=== PATIENT | female | born 1960 | race Caucasian/White ===

== ENCOUNTER 2019-05-19 07:26 | Outpatient (CLI) | payer BC, SELFPAY ==
--- NOTE | 2019-05-19 | MM_ITS ---
BILATERAL SCREENING DIGITAL MAMMOGRAM WITH CAD HISTORY: SCREENING COMPARISON: 05/25/2017 and 01/09/2015 Bilateral CC and MLO views submitted. Computer aided detection analyzed. Breast composition: There are scattered areas of fibroglandular density. No suspicious masses, microcalcifications or architectural distortion. Stable calcifications and nodules within each breast. IMPRESSION: BI-RADS: 2-Benign FOLLOW UP: 1 Year Follow- MTDD
== END 2019-05-19 07:27 | disposition home or self-care (01) ==
PROVIDERS: Family Provider Family Medicine; PCP Family Medicine; Visit Provider Family Medicine
DX: Z12.31 Encounter for screening mammogram for malignant neoplasm of breast (principal)
CPT/HCPCS: 77067

== ENCOUNTER → 2019-06-01 07:51 | Outpatient (BNVA) | payer BC, SELFPAY | PROVIDERS: Family Provider Family Medicine; PCP Family Medicine; Visit Provider Nurse Practitioner | DX: F33.2 Major depressive disorder, recurrent severe without psychotic features (principal) | CPT/HCPCS: 99213 ==

== ENCOUNTER → 2019-06-29 08:11 | Outpatient (BNVA) | payer BC, SELFPAY | PROVIDERS: Family Provider Family Medicine; PCP Family Medicine; Visit Provider Family Medicine | DX: Z01.89 Encounter for other specified special examinations (principal) ==

== ENCOUNTER 2019-07-05 12:11 | Outpatient (CLI) | payer BC, SELFPAY ==
--- NOTE | 2019-07-05 12:24 | XR_ITS ---
WS: [id number] XR knee RT 3V* [id number] REASON FOR EXAM: right knee pain FINDINGS: Degenerated loss of the meniscal space along the medial meniscus. There is spurring off the medial condyle of the femur and the medial tibial plateau. The patella shows degenerates spurring. And there is degenerate changes off the patella femoral artic ulation. The patella tibial space shows spurring off the upper tibial tubercle but the space is normal. XR/XR knee RT 3V* [id number] IMPRESSION: Osteoarthritic changes of the knee. Degenerated medial meniscal disease.
== END 2019-07-05 12:12 | disposition home or self-care (01) ==
LOC: RAD 12:19
PROVIDERS: Family Provider Family Medicine; PCP Family Medicine; Visit Provider Family Medicine
DX: M23.303 Other meniscus derangements, unspecified medial meniscus, right knee (principal)
CPT/HCPCS: 73562

== ENCOUNTER → 2019-08-29 07:41 | Outpatient (BNVA) | payer BC, SELFPAY | PROVIDERS: Family Provider Family Medicine; PCP Family Medicine; Visit Provider Nurse Practitioner | DX: F33.2 Major depressive disorder, recurrent severe without psychotic features (principal) | CPT/HCPCS: 99213 ==

== ENCOUNTER → 2019-11-21 07:30 | Outpatient (BNVA) | payer BC, SELFPAY | PROVIDERS: Family Provider Family Medicine; PCP Family Medicine; Visit Provider Nurse Practitioner | DX: F33.2 Major depressive disorder, recurrent severe without psychotic features (principal) | CPT/HCPCS: 99214 ==

== ENCOUNTER → 2020-01-03 08:48 | Outpatient (BNVA) | payer BC, SELFPAY | PROVIDERS: Family Provider Family Medicine; PCP Family Medicine; Visit Provider Family Medicine | DX: I10 Essential (primary) hypertension (principal); E11.9 Type 2 diabetes mellitus without complications; E78.5 Hyperlipidemia, unspecified | CPT/HCPCS: 80053; 80061; 82043; 83036; 85025 ==

== ENCOUNTER → 2020-02-20 07:51 | Outpatient (BNVA) | payer BC, SELFPAY | PROVIDERS: Family Provider Family Medicine; PCP Family Medicine; Visit Provider Nurse Practitioner | DX: F33.2 Major depressive disorder, recurrent severe without psychotic features (principal); F41.1 Generalized anxiety disorder | CPT/HCPCS: 99214 ==

== ENCOUNTER → 2020-03-05 09:25 | Outpatient (BNVA) | payer BC, SELFPAY | PROVIDERS: Family Provider Family Medicine; PCP Family Medicine; Visit Provider Family Medicine | DX: Z79.891 Long term (current) use of opiate analgesic (principal) | CPT/HCPCS: 80307 ==

== ENCOUNTER → 2020-03-30 14:15 | Outpatient (BNVA) | payer BC, SELFPAY | PROVIDERS: Family Provider Family Medicine; PCP Family Medicine; Visit Provider Surgery | DX: Z11.59 Encounter for screening for other viral diseases (principal); R19.4 Change in bowel habit | CPT/HCPCS: 87635 ==

== ENCOUNTER 2020-04-04 07:52 | Day surgery (SDC) | payer BC, SELFPAY ==
[2020-04-02 13:58] VITALS: BMI 39.3
[2020-04-04 08:07] VITALS: BP 135/84; PULSE 78; RESP 18; TEMP 36.3; O2SAT 96
[2020-04-04] MEDS: sodium chloride 0.9% 1,000 ML 30 ML IV (08:19)
[2020-04-04 08:23] LABS: Glucose Point of Care 132 mg/dL (70-110)
--- NOTE | 2020-04-04 08:31 | ANES.PREANE2 ---
Pre-Anesthetic Assessment Pre-Anesthetic Assessment: Height/Weight: Height 1.6 m Weight 100.698 kg Temp Pulse Resp BP Pulse Ox 97.3 F L 78 18 135/84 96 04/04/20 08:07 04/04/20 08:07 04/04/20 08:07 04/04/20 08:07 04/04/20 08:07 Preop Diagnosis: Change in bowel habits Proposed Procedure: Operation Date: 04/04/20 08:45 Proposed Procedures p Colonoscopy 82823 R19.4(Not Applicable) - Steven Urena MD Familial anesthetic complications: None Was Beta Lee taken within 24 hours: N/A Last intake: Intake Last Liquid Date 04/03/20 Last Liquid Time 22:50 Last Solid Date 04/02/20 Last Solid Time 18:30 Social: Social History: Tobacco and No alcohol Exam: Pre-Anes Outpt Exam: alert, oriented x 3, clear to auscultation bilaterally and regular rate & rhythm Airway: Cervical ROM: WNL MP: 3 Dentition: False CV/HEM: CV/HEM: HTN GI: GI: GERD Metabolic: Metabolic: DM and Morbid obesity Anesthetic Plan: ASA status: 2 Anesthesia: MAC Risk of > 500 ml blood loss (7ml/kg in children): No Meds/Allergies Current Medications: Current Medications Generic Name Dose Route Start Last Admin Trade Name Freq PRN Reason Stop Dose Admin Sodium Chloride 1,000 mls @ 30 ml s/hr 04/04/20 08:15 04/04/20 08:19 Sodium Chloride 0.9% IV 04/05/20 08:14 30 mls/hr .Q24H GUIDO Administration PFSH Anesthesia PFSH: Medical History Benign essential HTN Controlled diabetes mellitus without complication Dyslipidemia GERD (gastroesophageal reflux disease) Lumbar back pain with radiculopathy affecting left lower extremity Major depressive disorder, recurrent severe without psychotic features Surgical History H/O section H/O tubal ligation History of appendectomy History of back surgery Family History Other Cancer Diabetes Hypertension Stroke Social History Smoking and tobacco status: current every day smoker cigarettes Packs smoked per day: 0.5 Years cigarettes smoked: 40 Smoking risk assessment/counseling performed?: Yes Tobacco counseling given: counseling >3 minutes Alcohol intake: current Alcohol intake frequency: holidays/special occasions only Data Anesthesia Other Labs: Laboratory Results - last 48 hr 04/04/20 08:17 POC Glucose 132 Cardiac Studies: No Data to Display
--- NOTE | 2020-04-04 09:26 | W.PM.OPSUD ---
Surgery/Procedure H&P Update DATE OF PROCEDURE: April 04, 2020 DATE H&P PERFORMED: 03/12/20 H&P UPDATE INFORMATION: I have reviewed H&P completed within last 30 days, I have examined patient prior to procedure and No changes to prior documentation PREOP DIAGNOSIS: Change in bowel habits PRIMARY INDICATION FOR PROCEDURE: The same PLANNED PROCEDURE: Operation Date: 04/04/20 08:45 Proposed Procedures p Colonoscopy 88511 R19.4(Not Applicable) - Steven Urena MD
[2020-04-04 10:15] VITALS: BP 111/63; PULSE 66; RESP 18; TEMP 37.3; O2SAT 98
[2020-04-04 10:20] VITALS: BP 124/67; PULSE 72; RESP 16; O2SAT 99
[2020-04-04 10:31] VITALS: BP 122/93; PULSE 68; RESP 18; O2SAT 99
--- NOTE | 2020-04-04 21:10 | ANE.PACU2 ---
Inpatient post-anesthesia follow up: Airway intact: Yes Vital signs: Temperature 99.2 F Pulse Rate 68 Respiratory Rate 18 Blood Pressure 122/93 Pulse Oximetry 99 Oxygen Delivery Me thod Room Air Oxygen Flow Rate 3 Fraction of Inspir ed Oxygen Hydration adequate: Yes Nausea and vomiting: No Pain level: 1 Mental status: Baseline
== END 2020-04-04 10:46 | disposition home or self-care (01) ==
PROVIDERS: PCP Family Medicine; Visit Provider Surgery
PROC: 0DJD8ZZ Inspection of Lower Intestinal Tract, Via Natural or Artificial Opening Endoscopic (ICD-10-PCS; CPT 45378; principal; 2020-04-04 08:45)
DX: R19.4 Change in bowel habit (principal); R19.7 Diarrhea, unspecified; E11.9 Type 2 diabetes mellitus without complications; I10 Essential (primary) hypertension; E66.01 Morbid (severe) obesity due to excess calories; Z68.39 Body mass index [BMI] 39.0-39.9, adult; K21.9 Gastro-esophageal reflux disease without esophagitis; F33.2 Major depressive disorder, recurrent severe without psychotic features; F17.210 Nicotine dependence, cigarettes, uncomplicated
CPT/HCPCS: 12345; 36416; 45378; 82962; J2704; J7030

== ENCOUNTER → 2020-05-07 08:32 | Outpatient (BNVA) | payer BC, SELFPAY | PROVIDERS: PCP Family Medicine; Visit Provider Family Medicine | DX: E11.9 Type 2 diabetes mellitus without complications (principal); I10 Essential (primary) hypertension; M54.16 Radiculopathy, lumbar region; L03.211 Cellulitis of face; F17.219 Nicotine dependence, cigarettes, with unspecified nicotine-induced disorders | CPT/HCPCS: 80053; 83036 ==

== ENCOUNTER → 2020-05-22 07:44 | Outpatient (BNVA) | payer BC, SELFPAY | PROVIDERS: PCP Family Medicine; Visit Provider Nurse Practitioner | DX: F33.2 Major depressive disorder, recurrent severe without psychotic features (principal) | CPT/HCPCS: 99213 ==

== ENCOUNTER → 2020-05-26 16:12 | Outpatient (BNVA) | payer BC, SELFPAY | PROVIDERS: PCP Family Medicine; Visit Provider Nurse Practitioner Family | DX: Z20.828 Contact with and (suspected) exposure to other viral communicable diseases (principal) | CPT/HCPCS: 87635 ==

== ENCOUNTER → 2020-06-05 08:35 | Outpatient (BNVA) | payer BC, SELFPAY | PROVIDERS: PCP Family Medicine; Visit Provider Family Medicine | DX: I10 Essential (primary) hypertension (principal) | CPT/HCPCS: 80048 ==

== ENCOUNTER → 2020-07-11 15:27 | Outpatient (BNVA) | payer BC, SELFPAY | PROVIDERS: PCP Family Medicine; Visit Provider Specialist | DX: G56.01 Carpal tunnel syndrome, right upper limb (principal); R20.0 Anesthesia of skin; R20.2 Paresthesia of skin; F17.210 Nicotine dependence, cigarettes, uncomplicated | CPT/HCPCS: 95908 ==

== ENCOUNTER 2020-08-02 14:13 | Outpatient (CLI) | payer BC, SELFPAY ==
--- NOTE | 2020-08-02 17:30 | MR_ITS ---
WS: [id number] MRI LUMBAR SPINE NONCONTRAST TECHNIQUE: Sagittal T1, T2 and STIR imaging. Axial T1 and T2 imaging. CLINICAL INFORMATION: chronic low back pain COMPARISON: None. FINDINGS: Mild lumbar curve. No acute compression. Disc bulging worse at L3-4. No acute compression fractures. L1-L2: Mild disc bulging with narrowing of the right subarticular recess. Mild facet arthropathy. Mil d right foraminal narrowing. L2-L3: Mild annular bulging with slight effacement of ventral thecal sac. Slight narrowing of the lef t subarticular recess. Moderate facet arthropathy. Mild central canal stenosis. Mild left foraminal n arrowing. L3-L4: Mild disc bulging with narrowing of the subarticular recess bilaterally. Slight impingement tr aversing L4 nerve roots. Moderate facet arthropathy. Mild to moderate right and no significant left f oraminal narrowing. Moderate facet arthropathy. L4-L5: Laminectomy defects. Mild annular bulging with slight effacement of the ventral thecal sac. Mi ld bilateral foraminal narrowing. Moderate facet arthropathy. L5-S1: Disc osteophyte complex with endplate ridging. Shallow right pericentral protrusion impinges t he traversing right S1 nerve root in the subarticular recess. Moderate facet arthropathy. Foramen are patent. Mild central canal stenosis on the colorectal surgeon imaging cervical spine at C3-C4 . Small central protrusion a t C5-C6 with mild to moderate central canal stenosis. Additional small central protrusions mid thorac ic spine on the colorectal surgeon imaging. Findings can be further evaluated with cervical and thoracic spine MRI . Visualized pelvic bony structures: Normal. Paravertebral soft tissues: Normal. MR/MR lumbar spine wo con* [id number] IMPRESSION: 1. Mild lumbar curve. No acute compression. 2. Prior laminectomy defects L4-L5. Spinal canal is patent at this level. 3. Mild central canal stenosis L2-3 due to disc bulging with facet arthropathy and ligamentum flavum hypertrophy. Slight narrowing of the subarticular recess bilaterally. 4. Disc bulging L3-4 with slight impingement on the subarticular recess bilate rally. Moderate facet arthropathy. Mild right foraminal narrowing with slight c ontact of the exiting right L3 nerve root. 5. Shallow right subarticular protrusion L5-S1 slightly contacts the traversin g right S1 nerve root in the subarticular recess. Recommend correlation for S1 nerve root symptoms. 6. Mild left L5-S1 foraminal narrowing. 7. Moderate facet arthropathy L3-L4 and L4-L5. 8. Small central protrusion on the colorectal surgeon imaging cervical spine at C5-C6 with mild to moderate central canal stenosis. Recommend further evaluation with cer vical spine MRI.
== END 2020-08-02 14:14 | disposition home or self-care (01) ==
LOC: RADSHAW 14:14
PROVIDERS: PCP Family Medicine; Visit Provider Family Medicine
DX: G89.29 Other chronic pain (principal); M50.222 Other cervical disc displacement at C5-C6 level; M47.816 Spondylosis without myelopathy or radiculopathy, lumbar region; M51.27 Other intervertebral disc displacement, lumbosacral region; M48.061 Spinal stenosis, lumbar region without neurogenic claudication; M96.1 Postlaminectomy syndrome, not elsewhere classified
CPT/HCPCS: 72148

== ENCOUNTER → 2020-08-13 08:31 | Outpatient (BNVA) | payer BC, SELFPAY | PROVIDERS: PCP Family Medicine; Visit Provider Orthopaedic Surgery | DX: Z01.812 Encounter for preprocedural laboratory examination (principal); Z20.822 Contact with and (suspected) exposure to COVID-19 | CPT/HCPCS: 87635 ==

== ENCOUNTER 2020-08-16 05:58 | Day surgery (SDC) | payer BC, SELFPAY ==
[2020-08-15 13:45] VITALS: BMI 39.8
[2020-08-16 06:12] VITALS: BP 157/83; PULSE 81; RESP 16; TEMP 36.6; O2SAT 97
[2020-08-16 06:46] LABS: Glucose Point of Care 131 mg/dL (70-110)
[2020-08-16] MEDS: sodium chloride 0.9% 1,000 ML 30 ML IV (06:51)
--- NOTE | 2020-08-16 06:57 | ANES.PREANE2 ---
Pre-Anesthetic Assessment Pre-Anesthetic Assessment: Height/Weight: Height 1.6 m Weight 102.058 kg Temp Pulse Resp BP Pulse Ox 97.8 F 81 16 157/83 97 08/16/20 06:12 08/16/20 06:12 08/16/20 06:12 08/16/20 06:12 08/16/20 06:12 Preop Diagnosis: Carpal tunnel syndrome Right arm Proposed Procedure: Operation Date: 08/16/20 07:00 Proposed Procedures p right Carpal Tunnel Release 94470 g56.01(Right) - Ayad Reese MD Was Beta Lee taken within 24 hours: Yes Was Clonidine taken within 24 hours: N/A Last intake: Intake Last Liquid Date 08/16/20 Last Liquid Time 00:00 Last Solid Date 08/15/20 Last Solid Time 23:00 Social: Social History: No alcohol and No tobacco Exam: Pre-Anes Outpt Exam: alert, oriented x 3, clear to auscultation bilaterally and regular rate & rhythm Airway: Submandibular: WNL Cervical ROM: WNL MP: 2 Dentition: False Pulmonary: Pulmonary: None reported CV/HEM: CV/HEM: HTN GI: GI: GERD Metabolic: Metabolic: DM and Morbid obesity Musc/skel: Musc/skel: Lower Back Pain Neuropsych: Neuropsych: Anxiety and Depression Anesthetic Plan: ASA status: 3 Anesthesia: MAC and Regional (specify below) (Anjelica laureano) Risk of > 500 ml blood loss (7ml/kg in children): No Meds/Allergies Current Medications: Current Medications Generic Name Dose Route Start Last Admin Trade Name Freq PRN Reason Stop Dose Admin Sodium Chloride 1,000 mls @ 30 ml s/hr 08/16/20 06:15 08/16/20 06:51 Sodium Chloride 0.9% IV 08/17/20 06:14 30 mls/hr .Q24H GUIDO Administration PFSH Anesthesia PFSH: Medical History Benign essential HTN Controlled diabetes mellitus without complication Dyslipidemia GERD (gastroesophageal reflux disease) Lumbar back pain with radiculopathy affecting left lower extremity Major depressive disorder, recurrent severe without psychotic features Surgical History H/O section H/O tubal ligation History of appendectomy History of back surgery Status post colonoscopy (~03/2020) Family History Other Cancer Diabetes Hypertension Stroke Social History Smoking and tobacco status: current every day smoker cigarettes Packs smoked per day: 1 Years cigarettes smoked: 40 Smoking risk assessment/counseling performed?: Yes Tobacco counseling given: counseling >3 minutes Alcohol intake: current Alcohol intake frequency: holidays/special occasions only Data Anesthesia Other Labs: Laboratory Results - last 48 hr 08/16/20 06:44 POC Glucose 131 H Cardiac Studies: No Data to Display
--- NOTE | 2020-08-16 07:00 | W.PM.OPSUD ---
Surgery/Procedure H&P Update DATE OF PROCEDURE: August 16, 2020 DATE H&P PERFORMED: 07/25/20 PREOP DIAGNOSIS: Carpal tunnel syndrome Right arm PLANNED PROCEDURE: Operation Date: 08/16/20 07:00 Proposed Procedures p right Carpal Tunnel Release 80002 g56.01(Right) - Ayad Reese MD
--- NOTE | 2020-08-16 07:45 | PM.OP ---
Operative Report Date of procedure: August 16, 2020 Pre-op Diagnosis: Carpal tunnel syndrome Right arm Post-op diagnosis: same Post-op Findings: Same Procedure Done: Right carpal tunnel release Pathology: none sent Surgeon: Ayad Reese Anesthesia: Nerve Block (Anjelica block) Estimated blood loss (mL): 2 Tourniquet time (min): 16 Findings: No masses or space-occupying lesions were seen within the carpal tunnel Condition: stable Disposition: PACU Procedure: Patient was taken to the operating room and anesthesia provided by the anesthesia service. She was prepped and draped with the arm exposed. A timeout was performed. A 3 cm long incision was made in line with the fourth ray from the distal edge of the carpal tunnel extending proximally. The subcutaneous fat and palmar fascia was divided with a scalpel blade. Under loupe magnification the ulnar neurovascular bundle was identified distally. A hemostat could be passed under the transverse carpal ligament allowing the distal 25% to be divided. A slotted guide was then passed beneath the transverse carpal ligament and the middle 50% divided. Blunt scissors were then passed over the guide freeing the proximal ligament. The tourniquet was deflated. Hemostasis provided with electrocautery. Wound edges were infiltrated with 10 cc of a half percent Marcaine solution. Skin edges were reapproximated with 3-0 Prolene. Sterile dressings were applied. The patient was taken to the recovery room in stable condition
[2020-08-16 07:48] VITALS: BP 149/80; PULSE 77; RESP 24; TEMP 36.6; O2SAT 100
[2020-08-16 07:50] VITALS: BP 137/72; PULSE 74; RESP 19; O2SAT 100
[2020-08-16 07:55] VITALS: BP 125/81; PULSE 73; RESP 18; TEMP 36.6; O2SAT 99
[2020-08-16 08:00] VITALS: BP 136/73; PULSE 75; RESP 17; TEMP 36.7; O2SAT 97
[2020-08-16 08:15] VITALS: BP 118/85; PULSE 72; RESP 18; TEMP 36.6; O2SAT 98
--- NOTE | 2020-08-16 14:43 | ANE.PACU2 ---
Inpatient post-anesthesia follow up: Airway intact: Yes Vital signs: Temperature 97.9 F Pulse Rate 72 Respiratory Rate 18 Blood Pressure 118/85 Pulse Oximetry 98 Oxygen Delivery Me thod Room Air Oxygen Flow Rate Fraction of Inspir ed Oxygen Hydration adequate: Yes Nausea and vomiting: No Pain level: 1 Mental status: Baseline
== END 2020-08-16 08:35 | disposition home or self-care (01) ==
PROVIDERS: PCP Family Medicine; Visit Provider Orthopaedic Surgery
PROC: (CPT 64721; principal; 2020-08-16 07:00)
DX: G56.01 Carpal tunnel syndrome, right upper limb (principal); I10 Essential (primary) hypertension; K21.9 Gastro-esophageal reflux disease without esophagitis; E11.9 Type 2 diabetes mellitus without complications; E66.01 Morbid (severe) obesity due to excess calories; Z68.39 Body mass index [BMI] 39.0-39.9, adult; F41.9 Anxiety disorder, unspecified; E78.5 Hyperlipidemia, unspecified; F33.9 Major depressive disorder, recurrent, unspecified; F17.210 Nicotine dependence, cigarettes, uncomplicated
CPT/HCPCS: 64721; 36416; 82962; 96365; J0690; J2250; J2704; J3490; J7030

== ENCOUNTER → 2020-08-20 07:23 | Outpatient (BNVA) | payer BC, SELFPAY | PROVIDERS: PCP Family Medicine; Visit Provider Nurse Practitioner | DX: F33.2 Major depressive disorder, recurrent severe without psychotic features (principal) | CPT/HCPCS: 99214 ==

== ENCOUNTER → 2020-09-26 08:41 | Outpatient (BNVA) | payer BC, SELFPAY | PROVIDERS: PCP Family Medicine; Visit Provider Family Medicine | DX: I10 Essential (primary) hypertension (principal); E11.9 Type 2 diabetes mellitus without complications; E78.5 Hyperlipidemia, unspecified; F17.219 Nicotine dependence, cigarettes, with unspecified nicotine-induced disorders | CPT/HCPCS: 80053; 80061; 81015; 82043; 83036; 85025 ==

== ENCOUNTER 2021-01-04 11:14 | Outpatient (CLI) | payer OTHER, SELFPAY | END 2021-01-04 11:15 | disposition home or self-care (01) | LOC: LAB 02-06 13:39 | PROVIDERS: PCP Family Medicine; Visit Provider Family Medicine | DX: D47.3 Essential (hemorrhagic) thrombocythemia (principal) | CPT/HCPCS: 85025 ==

== ENCOUNTER 2021-01-18 08:53 | Outpatient (CLI) | payer OTHER, SELFPAY ==
--- NOTE | 2021-01-18 09:45 | ONC FU_ITS ---
Dr. Lund Patient Follow-Up Note Patient: Abby Ricci Unit #: [id number]: 1960 Dicatated By: Deven Lund M.D.Date of Visit:Jan 18, 2021 Onc Med Follow-up/Prog Note Chief Complaint: Thrombocytosis. History of Present Illness: This is a 60 year-old woman with with a mild to moderately severe thrombocytosis, presumed to be reactive. During postoperative follow-up after a lumbar laminectomy in 2018 she was found to have a mildly elevated platelet count. This was initially discovered on her CBC on 03/16/2018 which showed a hemoglobin of 13.0 g, white blood cell count slightly elevated at 10,300, and platelet count 533,000. The red cell indices were normal. As of 05/06/2018 there was further increase in the platelet count to 680,000. A repeat CBC on 06/15/2018 showed her hemoglobin borderline low at 12.1 g with white blood cell count 8600 and platelet count 516,000. I had seen her initially on 06/22/2018. She had not previously been aware of having an elevated platelet count. However, in reviewing her records in [facility], I did find hat multiple prior CBCs dating back to 2005 had shown mildly elevated platelet counts, but always less than 500,000. Her evaluation in 2019 included a repeat CBC which showed normal hemoglobin at 13.1 g, white blood cell count 8300, and a mildly elevated platelet count at 519,000. Comprehensive metabolic profile was unremarkable. Her serum iron studies showed normal transferrin saturation at 29.8%. The ferritin was in the low normal range at 46.0 ng/mL. The JAK2 V617F mutation, the calreticulin exon 9 mutation, and the MPL codon 515 mutation were not detected. Overall, the findings were consistent with reactive thrombocytosis. By clinical evaluation there did not appear to be an obvious underlying cause for it other than she had undergone a lumbar laminectomy in February 2018. As of her follow-up visit on 01/24/2019 her platelet count was just slightly elevated at 413,000. She appeared stable clinically. She was recommended to continue expectant management. Her other medical illnesses included hypertension, hyperlipidemia, type II diabetes, and anxiety/depression. She has a history of smoking for 40 years, previously in the range of 1 pack of cigarettes daily. Over the past couple of years she had cut down to 1 pack every 4 days. She is seen now for a follow-up visit. She recently has had some further surgeries including a right carpal tunnel release in August 2020, cervical fusion on 10/30/2020, and additional cervical spine procedures on the and 09 November. She has again been noted to have elevated platelet count on recent CBCs, including a platelet count of 570,000 on 09/26/2020. Her repeat CBC on 01/04/2021 showed further increase to 608,000. Her hemoglobin at that time was mildly decreased at 11.3 g with hematocrit 36.0% and with normal red cell indices. The white blood cell count was normal at 7400. She does complain that she has been feeling super tired, though she has gone back to work and she is also doing her usual housework at home. She does wear out. Her ECOG score is 1. Her appetite is down a little. She has not had fever. She sometimes has hot flashes/sweating. She has not had sore mouth or throat. She does not complain of cough. She says she does get short of breath. She has not been having chest pain. She has nausea if she gets really hot. She sometimes has acid reflux. She complains that her bowels have been slow. Bladder function remains adequate, though she thinks that she sometimes has yeast and/or urinary tract infection, which she manages with [id number] preparations. Her pain has improved following the surgeries, but she still sometimes gets lower back pain. She also has been having leg cramps. She sometimes has headache. She occasionally feels lightheaded. She has no numbness/paresthesia or other focal neurologic symptoms. Medications: BuPROPion HCl ER (XL) 1 Tablet (of 300 mg) Tablet SR 24 HR Oral daily, DiazePAM 1 Tablet (of 5 mg) Oral daily, EQL Century Mature Adults 50+ 1 Tablet Oral daily, Gabapentin 1 Capsule (of 400 mg) Oral t.i.d., HydroCHLOROthiazide 1 Tablet (of 12.5 mg) Oral daily, HYDROcodone-Acetaminophen 1 Tablet (of 5-325 mg) Oral b.i.d. PRN, LamoTRIgine 1 Tablet (of 100 mg) Oral daily, Lisinopril 1 Tablet (of 20 mg) Oral daily, MetFORMIN HCl 1 Tablet (of 1000 mg) Oral b.i.d., Mucinex D Max Strength 1 dose(s) Tablet SR 12 HR Oral q 12 hours PRN, Naprosyn 1 Tablet (of 500 mg) Oral b.i.d., Rosuvastatin Calcium 1 Tablet (of 10 mg) Oral daily, TraZODone HCl 1 Tablet (of 50 mg) Oral at bedtime PRN Allergies: No Known Allergies. Vital Signs: Performed on Jan 18, 2021 09:15 Height - 63.00 in Weight - 218.4 lbs (LOW) BSA - 2.01 sq.m BMI - 38.69 (HIGH) Temperature - 98 F (LOW) Pulse - 86 /min Respiration - 18 /min BP - 110/70 mm(hg) O2 Sat - 96 % Pain - 0 Fatigue - 8 Physical Examination: Constitutional - She looks pretty good generally, Eyes - Sclerae nonicteric. Conjunctivae clear, ENMT - No lesions noted in the oral cavity, Hematologic/Lymphatic - No cervical, clavicular, or axillary adenopathy, Respiratory - Lungs are clear with good air movement bilaterally, Cardiovascular - Heart rhythm is regular. There is no murmur, gallop, or rub noted, Abdomen - Soft. Liver and spleen are not enlarged. There is no abdominal mass or ascites noted and there is no inguinal adenopathy, Extremities - No edema, Neurologic - No focal neurologic deficits noted. Problem List: 1. Mild thrombocytosis, most likely reactive. 2. She also has mild anemia. 3. Degenerative disease of the spine. 4. Hypertension. 5. Hyperlipidemia. 6. Type II diabetes. 7. Anxiety/depression. Problems Addressed with this Encounter and Plan: Patient with mild thrombocytosis. Based on her previous evaluation, this is presumed to be reactive. She has been mildly anemic. As before, some of the increase in her platelet count may be related to recent surgeries. As she also complains of significant fatigue and muscle cramps, I think the most important issue is to make sure she is not iron deficient. As such, she will have repeat CBC today along with comprehensive metabolic profile, serum iron studies, and ferritin. I also will check sed rate, B12 level, and TSH level, and I will review the blood smear. She will have further evaluation as indicated. Signed By: Deven Lund M.D. <<Signature on File>>
[2021-01-18 10:13] LABS: Basophils # 0.1 10^3/uL (0.0-0.1); Basophils % 0.6 %; Eosinophils # 0.4 10^3/uL (0.0-0.8); Eosinophils % 4.2 %; Hematocrit 35.1 % (37.0-47.0); Hemoglobin 11.1 g/dL (11.5-15.3); Lymphocytes # 2.7 10^3/uL (0.8-4.8); Lymphocytes % 30.7 %; Mean Corpuscular HGB Conc 31.6 g/dL (30.0-36.0); Mean Corpuscular Hemoglobin 27.6 pg (28.0-34.0); Mean Corpuscular Volume 87.3 fl (81-99); Mean Platelet Volume 9.7 fL (7.4-10.4); Monocytes # 0.7 10^3/uL (0.2-0.9); Monocytes % 7.4 %; Neutrophils # 4.97 10^3/uL (1.8-7.7); Neutrophils % 56.5 %; Nucleated Red Blood Cells % 0 %; Platelet Count 593 10^3/cmm (130-400); Red Blood Count 4.02 10^6/uL (4.1-5.3); Red Cell Distribution Width 13.2 % (12.1-15.1); White Blood Count 8.8 10^3/uL (4.0-10.0)
[2021-01-18 10:49] LABS: Thyroid Stimulating Hormone 1.37 uIU/mL (0.27-4.20)
[2021-01-18 10:59] LABS: Alanine Aminotransferase 12 U/L (0-33); Albumin Level 4.3 g/dL (3.5-5.2); Alkaline Phosphatase 160 IU/L (35-105); Anion Gap 16.7 (5-19); Aspartate Amino Transferase 16 U/L (0-32); Blood Urea Nitrogen 11 mg/dL (8-23); Calcium 9.2 mg/dL (8.5-10.5); Carbon Dioxide 24 mmol/L (22-29); Chloride 97 mmol/L (98-107); Ferritin 22 ng/mL (15-150); Globulin 3.4 g/dL (1.3-4.6); Glomerular Filtration Rate 73.2 mL/min (90-130); Glucose 93 mg/dL (65-115); Iron 37 ug/dL (37-145); Lactate Dehydrogenase 156 U/L (135-214); Osmolality Calculated 275 mOsm/kg (285-295); Potassium 4.7 mmol/L (3.5-5.1); Sodium 133 mmol/L (136-145); Total Bilirubin 0.2 mg/dL (0.15-1.2); Total Iron Binding Capacity 368 mcg/dl; Total Protein 7.7 g/dL (6.6-8.7); Unsaturated Iron Binding 331 ug/dL (112-347); Vitamin B12 196 pg/mL (232-1245)
[2021-01-18 11:06] LABS: Erythrocyte Sedimentation Rate 61 mm/hr (0-15); LAB Peripheral Smear Sent for Review
== END 2021-01-18 08:54 | disposition home or self-care (01) ==
LOC: ONCMED 08:56
PROVIDERS: PCP Family Medicine; Visit Provider Internal Medicine Medical Oncology
DX: D47.3 Essential (hemorrhagic) thrombocythemia (principal); D64.9 Anemia, unspecified; I10 Essential (primary) hypertension; E11.9 Type 2 diabetes mellitus without complications; Z79.899 Other long term (current) drug therapy; Z79.84 Long term (current) use of oral hypoglycemic drugs
CPT/HCPCS: 36415; 80053; 82607; 82728; 83540; 83550; 83615; 84443; 85025; 85651; 99214

== ENCOUNTER 2021-02-20 14:33 | Outpatient (CLI) | payer OTHER, SELFPAY ==
[2021-02-20 15:21] LABS: Basophils # 0.1 10^3/uL (0.0-0.1); Basophils % 0.6 %; Eosinophils # 0.5 10^3/uL (0.0-0.8); Eosinophils % 4.1 %; Hematocrit 34.3 % (37.0-47.0); Hemoglobin 10.8 g/dL (11.5-15.3); Lymphocytes # 3.8 10^3/uL (0.8-4.8); Lymphocytes % 33.2 %; Mean Corpuscular HGB Conc 31.5 g/dL (30.0-36.0); Mean Corpuscular Hemoglobin 27.3 pg (28.0-34.0); Mean Corpuscular Volume 86.6 fl (81-99); Mean Platelet Volume 9.6 fL (7.4-10.4); Monocytes # 0.8 10^3/uL (0.2-0.9); Monocytes % 6.7 %; Neutrophils # 6.36 10^3/uL (1.8-7.7); Nucleated Red Blood Cells % 0 %; Platelet Count 584 10^3/cmm (130-400); Red Blood Count 3.96 10^6/uL (4.1-5.3); Red Cell Distribution Width 13.2 % (12.1-15.1); White Blood Count 11.6 10^3/uL (4.0-10.0)
[2021-02-20 15:57] LABS: Homocysteine 18.02
[2021-02-20 16:13] LABS: Vitamin B12 158 pg/mL (232-1245)
[2021-02-21 13:07] LABS: Lyme AB Screen <0.90 index
[2021-02-23 16:52] LABS: RMSF IGG NOT DETECTED; RMSF IGM NOT DETECTED
[2021-02-23 22:37] LABS: Methylmalonic Acid 610 nmol/L (87-318)
[2021-02-25 17:16] LABS: E. Chaffeensis AB IGG <1:64; E. Chaffeensis AB IGM <1:20
== END 2021-02-20 14:34 | disposition home or self-care (01) ==
LOC: ONCMED 14:37
PROVIDERS: PCP Family Medicine; Visit Provider Internal Medicine Medical Oncology
DX: D75.839 Thrombocytosis, unspecified (principal); D64.9 Anemia, unspecified; I10 Essential (primary) hypertension; E78.5 Hyperlipidemia, unspecified; E11.9 Type 2 diabetes mellitus without complications
CPT/HCPCS: 36415; 82607; 83090; 83921; 85025; 86618; 86666; 86757

== ENCOUNTER → 2021-03-06 10:30 | Outpatient (BNVA) | payer OTHER, SELFPAY | PROVIDERS: PCP Family Medicine; Visit Provider Orthopaedic Surgery | DX: M25.569 Pain in unspecified knee (principal); M17.0 Bilateral primary osteoarthritis of knee | CPT/HCPCS: 73560; 73565 ==

== ENCOUNTER 2021-03-13 14:58 | Outpatient (CLI) | payer OTHER, SELFPAY ==
[2021-03-13] MEDS: cyanocobalamin 1,000 mcg/mL SDV 1000 MCG SUBCUT (15:30)
[2021-03-13 15:37] LABS: Basophils # 0.1 10^3/uL (0.0-0.1); Basophils % 0.5 %; Eosinophils # 0.6 10^3/uL (0.0-0.8); Eosinophils % 4.6 %; Hematocrit 33.2 % (37.0-47.0); Hemoglobin 10.5 g/dL (11.5-15.3); Lymphocytes % 31.1 %; Mean Corpuscular HGB Conc 31.6 g/dL (30.0-36.0); Mean Corpuscular Hemoglobin 27.1 pg (28.0-34.0); Mean Corpuscular Volume 85.8 fl (81-99); Mean Platelet Volume 9.2 fL (7.4-10.4); Monocytes # 1.1 10^3/uL (0.2-0.9); Monocytes % 8.8 %; Neutrophils # 6.91 10^3/uL (1.8-7.7); Neutrophils % 54.3 %; Nucleated Red Blood Cells % 0 %; Platelet Count 590 10^3/cmm (130-400); Red Blood Count 3.87 10^6/uL (4.1-5.3); Red Cell Distribution Width 13.6 % (12.1-15.1); White Blood Count 12.7 10^3/uL (4.0-10.0)
[2021-03-13 15:57] LABS: Alanine Aminotransferase 13 U/L (0-33); Albumin Level 4.2 g/dL (3.5-5.2); Alkaline Phosphatase 132 IU/L (35-105); Anion Gap 18.4 (5-19); Aspartate Amino Transferase 14 U/L (0-32); Blood Urea Nitrogen 14 mg/dL (8-23); Calcium 9.3 mg/dL (8.5-10.5); Carbon Dioxide 22 mmol/L (22-29); Chloride 95 mmol/L (98-107); Globulin 3.5 g/dL (1.3-4.6); Glucose 93 mg/dL (65-115); Osmolality Calculated 272 mOsm/kg (285-295); Potassium 4.4 mmol/L (3.5-5.1); Sodium 131 mmol/L (136-145); Total Bilirubin 0.2 mg/dL (0.15-1.2); Total Protein 7.7 g/dL (6.6-8.7)
== END 2021-03-13 14:59 | disposition home or self-care (01) ==
LOC: ONCMED 15:00
PROVIDERS: PCP Family Medicine; Visit Provider Internal Medicine Medical Oncology
DX: D47.3 Essential (hemorrhagic) thrombocythemia (principal); D51.9 Vitamin B12 deficiency anemia, unspecified
CPT/HCPCS: 36415; 80053; 85025; 96372; J3420

== ENCOUNTER 2021-03-20 06:36 | Outpatient (CLI) | payer OTHER, SELFPAY ==
[2021-03-20] MEDS: cyanocobalamin 1,000 mcg/mL SDV 1000 MCG SUBCUT (14:21)
== END 2021-03-20 06:37 | disposition home or self-care (01) ==
LOC: ONCMED 06:37
PROVIDERS: PCP Family Medicine; Visit Provider Internal Medicine Medical Oncology
DX: E53.8 Deficiency of other specified B group vitamins (principal)
CPT/HCPCS: 96372; J3420

== ENCOUNTER → 2021-03-26 10:39 | Outpatient (BNVA) | payer OTHER, SELFPAY | PROVIDERS: PCP Family Medicine; Visit Provider Family Medicine | DX: E78.5 Hyperlipidemia, unspecified (principal); E11.9 Type 2 diabetes mellitus without complications | CPT/HCPCS: 80053; 80061; 83036 ==

== ENCOUNTER 2021-03-27 14:36 | Outpatient (CLI) | payer OTHER, SELFPAY | END 2021-03-27 14:37 | disposition home or self-care (01) | LOC: ONCMED 14:39 | PROVIDERS: PCP Family Medicine; Visit Provider Internal Medicine Medical Oncology | DX: D47.3 Essential (hemorrhagic) thrombocythemia (principal); D51.9 Vitamin B12 deficiency anemia, unspecified; Z79.899 Other long term (current) drug therapy | CPT/HCPCS: 96372 ==

== ENCOUNTER 2021-04-02 06:34 | Outpatient (CLI) | payer OTHER, SELFPAY ==
[2021-04-02 10:19] LABS: Basophils # 0.1 10^3/uL (0.0-0.1); Basophils % 0.5 %; Eosinophils # 0.4 10^3/uL (0.0-0.8); Eosinophils % 3.6 %; Hematocrit 32.7 % (37.0-47.0); Hemoglobin 10.5 g/dL (11.5-15.3); Lymphocytes # 3.5 10^3/uL (0.8-4.8); Lymphocytes % 31.4 %; Mean Corpuscular HGB Conc 32.1 g/dL (30.0-36.0); Mean Corpuscular Hemoglobin 27.2 pg (28.0-34.0); Mean Corpuscular Volume 84.7 fl (81-99); Mean Platelet Volume 9.4 fL (7.4-10.4); Monocytes # 0.6 10^3/uL (0.2-0.9); Neutrophils # 6.56 10^3/uL (1.8-7.7); Nucleated Red Blood Cells % 0 %; Platelet Count 658 10^3/cmm (130-400); Red Blood Count 3.86 10^6/uL (4.1-5.3); Red Cell Distribution Width 13.2 % (12.1-15.1); White Blood Count 11.1 10^3/uL (4.0-10.0)
[2021-04-02 10:56] LABS: Alanine Aminotransferase 13 U/L (0-33); Albumin Level 4.1 g/dL (3.5-5.2); Alkaline Phosphatase 140 IU/L (35-105); Anion Gap 19.2 (5-19); Aspartate Amino Transferase 14 U/L (0-32); Blood Urea Nitrogen 16 mg/dL (8-23); Carbon Dioxide 21 mmol/L (22-29); Chloride 98 mmol/L (98-107); Globulin 3.6 g/dL (1.3-4.6); Glomerular Filtration Rate 73.2 mL/min (90-130); Glucose 93 mg/dL (65-115); Osmolality Calculated 279 mOsm/kg (285-295); Potassium 4.2 mmol/L (3.5-5.1); Sodium 134 mmol/L (136-145); Total Bilirubin 0.2 mg/dL (0.15-1.2); Total Protein 7.7 g/dL (6.6-8.7)
[2021-04-02 12:10] LABS: Ferritin 20 ng/mL (15-150); Iron 34 ug/dL (37-145); Percent Saturation 9.3 % (20-50); Total Iron Binding Capacity 364 mcg/dl; Unsaturated Iron Binding 330 ug/dL (112-347)
[2021-04-02] MEDS: cyanocobalamin 1,000 mcg/mL SDV 1000 MCG SUBCUT (12:32)
--- NOTE | 2021-04-15 23:59 | ONC FU_ITS ---
[facility] Patient Note Patient: Abby Ricci Unit #: [id number]: [id number] Dictated By: Sreedhar AlexandreDate of Visit: Apr 02, 2021 Onc MED Follow-Up/Prog Note Chief Complaint: Thrombocytosis. History of Present Illness: Ms Ricci is a 60 year-old woman with with a mild to moderately severe thrombocytosis, presumed to be reactive. During postoperative follow-up after a lumbar laminectomy in 2018 she was found to have a mildly elevated platelet count. This was initially discovered on her CBC on 03/16/2018 which showed a hemoglobin of 13.0 g, white blood cell count slightly elevated at 10,300, and platelet count 533,000. The red cell indices were normal. As of 05/06/2018 there was further increase in the platelet count to 680,000. A repeat CBC on 06/15/2018 showed her hemoglobin borderline low at 12.1 g with white blood cell count 8600 and platelet count 516,000. Dr Lund had seen her initially on 06/22/2018. She had not previously been aware of having an elevated platelet count. However, in reviewing her records in [facility], I did find hat multiple prior CBCs dating back to 2005 had shown mildly elevated platelet counts, but always less than 500,000. Her evaluation in 2019 included a repeat CBC which showed normal hemoglobin at 13.1 g, white blood cell count 8300, and a mildly elevated platelet count at 519,000. Comprehensive metabolic profile was unremarkable. Her serum iron studies showed normal transferrin saturation at 29.8%. The ferritin was in the low normal range at 46.0 ng/mL. The JAK2 V617F mutation, the calreticulin exon 9 mutation, and the MPL codon 515 mutation were not detected. Overall, the findings were consistent with reactive thrombocytosis. By clinical evaluation there did not appear to be an obvious underlying cause for it other than she had undergone a lumbar laminectomy in February 2018. As of her follow-up visit on 01/24/2019 her platelet count was just slightly elevated at 413,000. She appeared stable clinically. She was recommended to continue expectant management. Her other medical illnesses included hypertension, hyperlipidemia, type II diabetes, and anxiety/depression. She has a history of smoking for 40 years, previously in the range of 1 pack of cigarettes daily. Over the past couple of years she had cut down to 1 pack every 4 days. She was seen by Dr Lund on January 18, 2021 for a follow-up visit. She recently has had some further surgeries including a right carpal tunnel release in August 2020, cervical fusion on 10/30/2020, and additional cervical spine procedures on the and 09 November. She has again been noted to have elevated platelet count on recent CBCs, including a platelet count of 570,000 on 09/26/2020. Her repeat CBC on 01/04/2021 showed further increase to 608,000. Her hemoglobin at that time was mildly decreased at 11.3 g with hematocrit 36.0% and with normal red cell indices. The white blood cell count was normal at 7400. She was having significant fatigue at that time as well. Her B12 level was found to be 196 on January 18, 2021 and repeat on February 20, 2021 was 158. She began B12 replacement on March 13, 2021 and has received 2 doses thus far. Mrs. Ricci is here today for follow-up. She states overall she is feeling much better since initiating the B12 although it only been 2 doses. She denies any fever or chills. She reports she did have a flu shot in February 2021. She reports her last pneumonia shot was 2019. She states she is eating good her energy is improved. She is able to do all her ADLs without any assistance. She denies any shortness of breath orthopnea. She denies chest pain or palpitations. She denies any nausea vomiting or diarrhea. She denies any tenderness or soreness at the injection site for the B12. She states overall she is feeling better. Her ECOG is 1. Past Medical History: Anxiety Degenerative disease of the spine Depression Hyperlipidemia Hypertension Type II diabetes Past Surgical History: D&C Lumbar laminectomy Covid vaccine #2 in 2020 Covid vaccine #1 in 2020 Caesarean section in 1995 Appendectomy in 1970 Allergies: No Known Allergies. Medications: BuPROPion HCl ER (XL) 1 Tablet (of 300 mg) Tablet SR 24 HR Oral daily DiazePAM 1 Tablet (of 5 mg) Oral daily DULoxetine HCl 1 Tablet (of 60 mg) Capsule Delayed Release Particles Oral b.i.d. EQL Century Mature Adults 50+ 1 Tablet Oral daily Furosemide 1 Tablet (of 20 mg) Oral daily Gabapentin 1 Capsule (of 400 mg) Oral t.i.d. HydroCHLOROthiazide 1 Tablet (of 12.5 mg) Oral daily Lisinopril 1 Tablet (of 10 mg) Oral at bedtime Lisinopril 1.5 Tablet (of 20 mg) Oral daily MetFORMIN HCl 1 Tablet (of 1000 mg) Oral b.i.d. Mucinex D Max Strength 1 dose(s) Tablet SR 12 HR Oral q 12 hours PRN Naprosyn 1 Tablet (of 500 mg) Oral b.i.d. oxyCODONE-Acetaminophen 1 Tablet (of 5-325 mg) Oral b.i.d. PRN Rosuvastatin Calcium 1 Tablet (of 10 mg) Oral daily TraZODone HCl 1 Tablet (of 50 mg) Oral at bedtime PRN Family History: Ms. Ricci's mother at age 74: heart attack, and hypertension. Ms. Ricci's father at age 72: cerebrovascular accident, and diabetes, and prostate cancer. Ms. Ricci has 1 brother who is alive: heart disease. Father at age 72 with complications of diabetes, including multiple strokes. He also had prostate cancer. Mother of heart attack at age 74. She has one brother who has lung problems and heart disease. Social History: Ms. Ricci is and she is a [employer]. She is a daily smoker who has smoked 0.5 packs/day for 42 years. She drinks occasionally. She has indicated exposure to the following products: cigarettes. She has a history of smoking for 40 years, previously up to 1 pack of cigarettes daily. Over the past couple years she has cut down, and she now smokes 1 pack one every 4 days. She has just very occasional alcohol use. Review Of Symptoms: <See Above> Vital Signs: Performed on Apr 02, 2021 11:13 Height - 63.00 in Weight - 215 lbs (LOW) BSA - 1.99 sq.m BMI - 38.09 (HIGH) Temperature - 96.6 F (LOW) Pulse - 94 /min Respiration - 18 /min BP - 156/82 mm(hg) (HIGH) O2 Sat - 99 % Pain - 5 Fatigue - 1,1 - No physically strenuous activity, but ambulatory and able to carry out light or sedentary work (e.g. office work, light house work). (ECOG) Physical Examination: Constitutional Alert, oriented, no acute distress. Skin pink, warm and dry. Head Normocephalic; atraumatic. Eyes Conjunctivae and sclerae are clear and without icterus. Pupils are reactive and equal. Neck Supple without masses or thyromegaly. No jugular venous distension. Hematologic/Lymphatic No petechiae or purpura. No tender or palpable lymph nodes in the cervical or supraclavicular areas. Respiratory Lungs are clear to auscultation without rhonchi or wheezing. Cardiovascular Regular rate and rhythm of heart without murmurs,clicks, gallops or rubs. Abdomen Non-tender, non-distended, no masses or ascites. Good bowel sounds noted in all quads. No guarding or rebound tenderness. No pulsatile masses. Back/Spine Non-tender to palpation. Extremities No visible deformities, no cyanosis, clubbing or edema. Musculoskeletal No tenderness or swelling, normal range of motion without obvious weakness. Integumentary No rashes or lesions. Neurologic No sensory or motor deficits, normal cerebellar function, normal gait. Psychiatric Alert and oriented times three. Coherent speech. Verbalizes understanding of our discussions today. Laboratory:Test performed on Apr 02, 2021 09:46 Ferritin 20 ng/mL Iron 34 mcg/dL Sodium 134 mmol/L Iron Binding Capacity (TIBC) 364 mcg/dl Potassium 4.2 mmol/L % Iron Saturation 9.3 % Chloride 98 mmol/L CO2 21 mmol/L UIBC 330 mcg/dL Anion Gap 19.2 BUN 16 mg/dL Creatinine 0.8 mg/dL Cr Clearance (Est) 115.1300 mL/min eGFR 73.2 mL/min Glucose 93 mg/dL Osmolality - Calculated 279 mOsm/kg Calcium 9.0 mg/dL Protein, Total 7.7 g/dL Albumin 4.1 g/dL Globulin 3.6 g/dL Bilirubin, Total 0.2 mg/dL ALT (SGPT) 13 U/L AST (SGOT) 14 U/L Alkaline Phosphatase 140 IU/L WBC 11.1 10 3/uL RBC 3.86 10 6/uL HGB 10.5 g/dL HCT 32.7 % MCV 84.7 fl MCH 27.2 pg MCHC 32.1 g/dL RDW 13.2 % Platelet Count 658 10 3/cmm MPV 9.4 fL Neutrophils 6.56 10 3/uL Lymphocytes 3.5 10 3/uL Monocytes 0.6 10 3/uL Eosinophils 0.4 10 3/uL Basophils 0.1 10 3/uL Neutrophil % 59.0 % Lymphocyte % 31.4 % Monocyte % 5.0 % Eosinophil % 3.6 % Basophils % 0.5 % NRBC % 0 % Test performed on Feb 20, 2021 15:04 Homocysteine 18.02 umol/L Methylmalonic Acid 610 nmol/L Vitamin B12 158 pg/mL Lyme Disease Screen <0.90 Index Interpretation ----- < 0.90 Negative 0.90-1.09 Equivocal > 1.09 Positive As recommended by the Food and Drug Administration (FDA), all samples with positive or equivocal results in a Borrelia burgdorferi antibody screen will be tested using a blot method. Positive or equivocal screening test results should not be interpreted as truly positive until verified as such using a supplemental assay (e.g., B. burgdorferi blot). The screening test and/or blot for B. burgdorferi antibodies may be falsely negative in early stages of Lyme disease, including the period when erythema migrans is apparent. THIS TEST WAS PERFORMED AT: [facility] [address] [id number] ELEONORA JOHNSON DO,MPH index Test performed on Jan 18, 2021 09:35 LDH (Total) 156 U/L TSH 1.37 uIU/mL ESR (Sed Rate) 61 mm/hr Impression: 1. Mild thrombocytosis, most likely reactive. 2. She also has mild anemia. 3. Degenerative disease of the spine. 4. Hypertension. 5. Hyperlipidemia. 6. Type II diabetes. 7. Anxiety/depression. Plan/Problems Addressed at this Visit: Patient with mild thrombocytosis. Based on her previous evaluation, this is presumed to be reactive. She has been mildly anemic. As before, some of the increase in her platelet count may be related to recent surgeries. As she was also complaining of significant fatigue and muscle cramps, Iron deficiency was ruled out. Her iron level on January 18, 2021 was 37 TIBC was 368 and ferritin was 22. Her B12 was found to be 196 and repeated again February 20, 2021 which time her B12 level is 158, MMA was 610 and homocystine was 18.02. She began vitamin B12 replacement with 1000 mcg on 03/13/2021. Her second dose was on 03/20/2021. A. She will proceed with her third dose of B12/cyanocobalamin today. B. Today's labs reviewed in detail discussed with Ms. Ricci and a copy was given to her. WBC 11.1, hemoglobin 10.5, platelets 658,000. ANC is 6560. 4.2 creatinine 0.8 random glucose 93 LFTs are normal. Her alk phos is stable at 140. C. She will proceed with B12 replacement weekly for total of 4 weeks then proceed with monthly replacement. D. We will have her return in 1 month for follow-up with CBC CMP. E. Mrs. Ricci was instructed to contact us in interim should questions or problems arise. Signed By: Sreedhar Alexandre-, [facility] Deven Lund MD <<Signature on File>>
== END 2021-04-02 06:35 | disposition home or self-care (01) ==
LOC: ONCMED 06:34
PROVIDERS: PCP Family Medicine; Visit Provider Nurse Practitioner
DX: D47.3 Essential (hemorrhagic) thrombocythemia (principal); D51.9 Vitamin B12 deficiency anemia, unspecified; Z79.899 Other long term (current) drug therapy
CPT/HCPCS: 36415; 80053; 82728; 83540; 83550; 85025; 96372; 99214; J3420

== ENCOUNTER 2021-05-02 08:47 | Outpatient (CLI) | payer OTHER, SELFPAY ==
[2021-05-02] MEDS: sodium chloride 0.9% 500 ML IV (09:15)
[2021-05-02] MEDS: acetaminophen 325 mg Tablet 650 MG PO (09:15)
[2021-05-02] MEDS: diphenhydrAMINE 50 mg/mL SDV 1mL 25 MG IVP (09:15)
[2021-05-02] MEDS: iron dextran 25 MG in SYRINGE 1 EACH 30 MG IVP (09:35)
[2021-05-02] MEDS: iron dextran 1,000 MG in sodium chloride 0.9% 1,000 ML 250 MG IV (11:00)
[2021-05-02] MEDS: cyanocobalamin 1,000 mcg/mL SDV 1000 MCG SUBCUT (11:40)
== END 2021-05-02 08:48 | disposition home or self-care (01) ==
PROVIDERS: PCP Family Medicine; Visit Provider Internal Medicine Medical Oncology
DX: D47.3 Essential (hemorrhagic) thrombocythemia (principal); D51.9 Vitamin B12 deficiency anemia, unspecified; Z79.899 Other long term (current) drug therapy
CPT/HCPCS: 96365; 96366; 96367; 96372; 96375; J1100; J1200; J1750; J3420; J7030; J7040

== ENCOUNTER 2021-06-05 11:29 | Outpatient (CLI) | payer OTHER, SELFPAY ==
[2021-06-05 11:56] LABS: Basophils # 0.1 10^3/uL (0.0-0.1); Basophils % 0.7 %; Eosinophils # 0.5 10^3/uL (0.0-0.8); Eosinophils % 4.3 %; Hematocrit 39.7 % (37.0-47.0); Hemoglobin 12.5 g/dL (11.5-15.3); Lymphocytes # 3.6 10^3/uL (0.8-4.8); Mean Corpuscular HGB Conc 31.5 g/dL (30.0-36.0); Mean Corpuscular Hemoglobin 28.1 pg (28.0-34.0); Mean Corpuscular Volume 89.2 fl (81-99); Monocytes # 0.7 10^3/uL (0.2-0.9); Monocytes % 6.9 %; Neutrophils # 5.61 10^3/uL (1.8-7.7); Neutrophils % 53.7 %; Nucleated Red Blood Cells % 0 %; Platelet Count 505 10^3/cmm (130-400); Red Blood Count 4.45 10^6/uL (4.1-5.3); Red Cell Distribution Width 15.6 % (12.1-15.1); White Blood Count 10.4 10^3/uL (4.0-10.0)
[2021-06-05 12:21] LABS: Alanine Aminotransferase 15 U/L (0-33); Albumin Level 4.5 g/dL (3.5-5.2); Alkaline Phosphatase 124 IU/L (35-105); Anion Gap 18.9 (5-19); Aspartate Amino Transferase 15 U/L (0-32); Blood Urea Nitrogen 16 mg/dL (8-23); Calcium 9.3 mg/dL (8.5-10.5); Carbon Dioxide 22 mmol/L (22-29); Chloride 98 mmol/L (98-107); Ferritin 272 ng/mL (15-150); Glomerular Filtration Rate 63.9 mL/min (90-130); Glucose 86 mg/dL (65-115); Iron 61 ug/dL (37-145); Osmolality Calculated 278 mOsm/kg (285-295); Percent Saturation 25.8 % (20-50); Potassium 4.9 mmol/L (3.5-5.1); Sodium 134 mmol/L (136-145); Total Bilirubin 0.2 mg/dL (0.15-1.2); Total Iron Binding Capacity 236 mcg/dl; Total Protein 7.5 g/dL (6.6-8.7); Unsaturated Iron Binding 175 ug/dL (112-347)
== END 2021-06-05 11:30 | disposition home or self-care (01) ==
LOC: ONCMED 11:36
PROVIDERS: PCP Family Medicine; Visit Provider Internal Medicine Medical Oncology
DX: D69.6 Thrombocytopenia, unspecified (principal); Z79.899 Other long term (current) drug therapy
CPT/HCPCS: 36415; 80053; 82728; 83540; 83550; 85025

== ENCOUNTER → 2021-06-12 15:39 | Outpatient (BNVA) | payer OTHER, SELFPAY | PROVIDERS: PCP Family Medicine; Visit Provider Nurse Practitioner Family | DX: Z20.822 Contact with and (suspected) exposure to COVID-19 (principal) | CPT/HCPCS: 87635 ==

== ENCOUNTER 2021-06-27 10:53 | Outpatient (CLI) | payer OTHER, SELFPAY ==
[2021-06-27 11:46] LABS: Basophils # 0.1 10^3/uL (0.0-0.1); Basophils % 0.5 %; Eosinophils # 0.5 10^3/uL (0.0-0.8); Eosinophils % 3.6 %; Hematocrit 41.1 % (37.0-47.0); Lymphocytes # 3.7 10^3/uL (0.8-4.8); Mean Corpuscular HGB Conc 31.6 g/dL (30.0-36.0); Mean Corpuscular Hemoglobin 28.3 pg (28.0-34.0); Mean Corpuscular Volume 89.3 fl (81-99); Mean Platelet Volume 9.5 fL (7.4-10.4); Monocytes # 0.7 10^3/uL (0.2-0.9); Monocytes % 5.1 %; Neutrophils # 7.81 10^3/uL (1.8-7.7); Neutrophils % 61.3 %; Nucleated Red Blood Cells % 0 %; Platelet Count 475 10^3/cmm (130-400); Red Cell Distribution Width 15.3 % (12.1-15.1); White Blood Count 12.8 10^3/uL (4.0-10.0)
[2021-06-27 12:08] LABS: Alanine Aminotransferase 24 U/L (0-33); Albumin Level 4.5 g/dL (3.5-5.2); Alkaline Phosphatase 144 IU/L (35-105); Anion Gap 16.7 (5-19); Aspartate Amino Transferase 17 U/L (0-32); Blood Urea Nitrogen 13 mg/dL (8-23); Calcium 10.5 mg/dL (8.5-10.5); Carbon Dioxide 23 mmol/L (22-29); Chloride 101 mmol/L (98-107); Ferritin 287 ng/mL (15-150); Globulin 3.3 g/dL (1.3-4.6); Glomerular Filtration Rate 72.9 mL/min (90-130); Glucose 140 mg/dL (65-115); Iron 82 ug/dL (37-145); Osmolality Calculated 284 mOsm/kg (285-295); Percent Saturation 31.9 % (20-50); Potassium 4.7 mmol/L (3.5-5.1); Sodium 136 mmol/L (136-145); Total Bilirubin 0.2 mg/dL (0.15-1.2); Total Iron Binding Capacity 257 mcg/dl; Total Protein 7.8 g/dL (6.6-8.7); Unsaturated Iron Binding 175 ug/dL (112-347)
== END 2021-06-27 10:54 | disposition home or self-care (01) ==
LOC: ONCMED 16:03
PROVIDERS: Nurse Practitioner; PCP Family Medicine; Visit Provider Nurse Practitioner Family
DX: D47.3 Essential (hemorrhagic) thrombocythemia (principal); D64.9 Anemia, unspecified; G31.89 Other specified degenerative diseases of nervous system; I10 Essential (primary) hypertension; E78.5 Hyperlipidemia, unspecified; E11.9 Type 2 diabetes mellitus without complications; F41.9 Anxiety disorder, unspecified; F32.9 Major depressive disorder, single episode, unspecified; Z79.899 Other long term (current) drug therapy
CPT/HCPCS: 36415; 80053; 82728; 83540; 83550; 85025; 96372; 99215

== ENCOUNTER 2021-07-25 10:57 | Outpatient (CLI) | payer OTHER, SELFPAY ==
[2021-07-25] MEDS: cyanocobalamin 1,000 mcg/mL SDV 1000 MCG SUBCUT (11:10)
== END 2021-07-25 10:58 | disposition home or self-care (01) ==
PROVIDERS: PCP Family Medicine; Visit Provider Internal Medicine Medical Oncology
DX: D51.9 Vitamin B12 deficiency anemia, unspecified (principal)
CPT/HCPCS: 96372; J3420

== ENCOUNTER → 2021-08-09 11:42 | Outpatient (BNVA) | payer OTHER, SELFPAY | PROVIDERS: PCP Family Medicine; Visit Provider Family Medicine | DX: E78.5 Hyperlipidemia, unspecified (principal); E11.9 Type 2 diabetes mellitus without complications; M54.16 Radiculopathy, lumbar region | CPT/HCPCS: 80053; 80061 ==

== ENCOUNTER 2021-10-11 08:30 | Oncology outpatient (recurring) (ONCR) | payer OTHER, SELFPAY ==
[2021-10-11 08:40] VITALS: BP 158/87; PULSE 103; RESP 16; TEMP 36.4; O2SAT 95
[2021-10-11] MEDS: cyanocobalamin 1,000 mcg/mL SDV 1000 MCG SUBCUT (08:43)
== END 2021-10-15 23:59 | disposition home or self-care (01) ==
PROVIDERS: PCP Family Medicine; Referring Provider Family Medicine; Visit Provider Internal Medicine Medical Oncology
DX: D50.9 Iron deficiency anemia, unspecified (principal)
CPT/HCPCS: 96372; J3420

== ENCOUNTER 2021-11-13 10:59 | Oncology outpatient (recurring) (ONCR) | payer OTHER, SELFPAY ==
[2021-11-13 12:01] LABS: Basophils # 0.1 10^3/uL (0.0-0.1); Basophils % 0.6 %; Eosinophils # 0.7 10^3/uL (0.0-0.8); Hematocrit 37.3 % (37.0-47.0); Hemoglobin 12.6 g/dL (11.5-15.3); Lymphocytes # 4.1 10^3/uL (0.8-4.8); Mean Corpuscular HGB Conc 33.8 g/dL (30.0-36.0); Mean Corpuscular Hemoglobin 30.3 pg (28.0-34.0); Mean Corpuscular Volume 89.7 fl (81-99); Mean Platelet Volume 10.1 fL (7.4-10.4); Monocytes # 0.6 10^3/uL (0.2-0.9); Monocytes % 5.3 %; Neutrophils # 5.55 10^3/uL (1.8-7.7); Neutrophils % 50.6 %; Nucleated Red Blood Cells % 0 %; Platelet Count 480 10^3/cmm (130-400); Red Blood Count 4.16 10^6/uL (4.1-5.3)
[2021-11-13 12:23] LABS: Alanine Aminotransferase 23 U/L (0-33); Albumin Level 4.7 g/dL (3.5-5.2); Alkaline Phosphatase 135 IU/L (35-105); Aspartate Amino Transferase 20 U/L (0-32); Blood Urea Nitrogen 9 mg/dL (8-23); Calcium 9.7 mg/dL (8.5-10.5); Carbon Dioxide 27 mmol/L (22-29); Chloride 97 mmol/L (98-107); Ferritin 147 ng/mL (15-150); Globulin 3.1 g/dL (1.3-4.6); Glomerular Filtration Rate 101.6 mL/min (90-130); Glucose 97 mg/dL (65-115); Iron 76 ug/dL (37-145); Osmolality Calculated 283 mOsm/kg (285-295); Percent Saturation 28.3 % (20-50); Sodium 137 mmol/L (136-145); Total Bilirubin 0.2 mg/dL (0.15-1.2); Total Iron Binding Capacity 268 mcg/dl; Total Protein 7.8 g/dL (6.6-8.7); Unsaturated Iron Binding 192 ug/dL (112-347)
[2021-11-13 12:39] LABS: Vitamin B12 978 pg/mL (232-1245)
== END 2021-11-14 23:59 | disposition home or self-care (01) ==
PROVIDERS: Nurse Practitioner Family; PCP Family Medicine; Referring Provider Family Medicine; Visit Provider Internal Medicine Medical Oncology
DX: E53.8 Deficiency of other specified B group vitamins (principal); R79.89 Other specified abnormal findings of blood chemistry
CPT/HCPCS: 80053; 82607; 82728; 83540; 83550; 85025

== ENCOUNTER 2022-05-21 11:25 | Oncology outpatient (recurring) (ONCR) | payer OTHER, SELFPAY ==
[2022-05-21 12:29] LABS: Basophils # 0.1 10^3/uL (0.0-0.1); Basophils % 0.7 %; Eosinophils # 0.5 10^3/uL (0.0-0.8); Eosinophils % 5.5 %; Hematocrit 42.7 % (37.0-47.0); Hemoglobin 13.5 g/dL (11.5-15.3); Lymphocytes # 2.7 10^3/uL (0.8-4.8); Lymphocytes % 27.5 %; Mean Corpuscular HGB Conc 31.6 g/dL (30.0-36.0); Mean Corpuscular Hemoglobin 30.1 pg (28.0-34.0); Mean Corpuscular Volume 95.1 fl (81-99); Mean Platelet Volume 9.9 fL (7.4-10.4); Monocytes # 0.5 10^3/uL (0.2-0.9); Monocytes % 5.2 %; Neutrophils # 5.94 10^3/uL (1.8-7.7); Neutrophils % 60.7 %; Nucleated Red Blood Cells % 0 %; Platelet Count 664 10^3/cmm (130-400); Red Blood Count 4.49 10^6/uL (4.1-5.3); Red Cell Distribution Width 12.8 % (12.1-15.1); White Blood Count 9.8 10^3/uL (4.0-10.0)
[2022-05-21 13:23] LABS: Alanine Aminotransferase 22 U/L (0-33); Albumin Level 4.7 g/dL (3.5-5.2); Alkaline Phosphatase 139 U/L (35-105); Blood Urea Nitrogen 6 mg/dL (8-23); Calcium 9.6 mg/dL (8.5-10.5); Carbon Dioxide 25 mmol/L (22-29); Chloride 101 mmol/L (98-107); Globulin 3.4 g/dL (1.3-4.6); Glomerular Filtration Rate 72.9 mL/min (90-130); Glucose 105 mg/dL (65-115); Osmolality Calculated 288 mOsm/kg (285-295); Sodium 140 mmol/L (136-145); Total Bilirubin 0.2 mg/dL (0.15-1.2); Total Protein 8.1 g/dL (6.6-8.7)
[2022-05-21 13:24] LABS: Anion Gap 18.8 (5-19); Aspartate Amino Transferase 27 U/L (0-32); Lactate Dehydrogenase 282 U/L (135-214); Potassium 4.8 mmol/L (3.5-5.1)
== END 2022-06-17 23:59 | disposition home or self-care (01) ==
PROVIDERS: PCP Family Medicine; Referring Provider Family Medicine; Visit Provider Internal Medicine Medical Oncology
DX: D75.839 Thrombocytosis, unspecified (principal)
CPT/HCPCS: 36415; 80053; 83615; 85025; 88374

== ENCOUNTER → 2022-05-23 09:14 | Outpatient (BNVA) | payer OTHER, SELFPAY | PROVIDERS: PCP Family Medicine; Visit Provider Family Medicine | DX: E11.9 Type 2 diabetes mellitus without complications (principal); E78.5 Hyperlipidemia, unspecified; Z79.891 Long term (current) use of opiate analgesic; M54.16 Radiculopathy, lumbar region | CPT/HCPCS: 80061; 80307; 82043; 83036 ==

== ENCOUNTER 2022-06-10 14:03 | Outpatient (CLI) | payer OTHER, SELFPAY | END 2022-06-10 14:04 | disposition home or self-care (01) | LOC: LAB 14:04 | PROVIDERS: PCP Family Medicine; Visit Provider Internal Medicine Medical Oncology | DX: D72.829 Elevated white blood cell count, unspecified (principal) | CPT/HCPCS: 36415; 88374 ==

== ENCOUNTER 2022-06-21 15:02 | Emergency (ER) | payer OTHER, SELFPAY ==
[2022-06-21 15:12] VITALS: BP 139/81; PULSE 98; RESP 16; TEMP 36.4; O2SAT 97; BMI 37.2
--- NOTE | 2022-06-21 15:27 | XRR_ITS ---
PROCEDURE INFORMATION: Exam: XR Right Shoulder Exam date and time: 06/21/2022 3:41 PM Age: 62 years old Clinical indication: Injury or trauma; Fall; Blunt trauma (contusions or hematomas); Shoulder; Right; Additional info: Fall injury with pain and limited rom TECHNIQUE: Imaging protocol: Radiologic exam of the Right shoulder. Views: 2 or more views. COMPARISON: No relevant prior studies available. FINDINGS: Bones/joints: Comminuted impacted displaced humeral head and neck fracture. Rotator cuff calcific tendinitis. 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 Soft tissues: Normal. XR/XR shoulder RT min 2V* [id number] IMPRESSION: 1. Comminuted impacted displaced humeral head and neck fracture. 2. Rotator cuff calcific tendinitis. 3. 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
--- NOTE | 2022-06-21 15:27 | W.ED.EXTPRO ---
Documented by User: RAMY Frank 06/21/22 16:16 HPI - Extremity Problem General: Chief complaint: Extremity Injury, Upper Stated complaint: fall, right shoulder injury Time Seen by Provider: 06/21/22 15:18 History of Present Illness: Patient is a 62-year-old female comes to the ED with right shoulder injury. Injury occurred today while at her house. She was walking in her house and caught a weak spot in the floor which caused her to trip. She fell forward and her right shoulder hit the door. Denies any head trauma or loss of consciousness. Since fall she is having right shoulder pain that she rates a 5 out of 10. Limited range of motion right shoulder. Patient has a history of chronic back pain and takes Percocet for chronic pain. She took a Percocet about an hour and a half before coming to the ED and that has helped her pain some. Associated symptoms: Deny chest pain, fever(s) or rash Review of Systems Const: Denies: fever(s), chills or fatigue Eyes: Denies: change in vision or eye discomfort ENMT: Denies: throat pain, odynophagia, nasal discharge or nasal congestion Card: Denies: chest pain, palpitations, edema, swelling of feet/ankles, dyspnea on exertion or orthopnea Resp: Denies: dyspnea, productive cough or non-productive cough GI: Denies: abdominal pain, nausea, vomiting, diarrhea, constipation or hematochezia : Denies: flank pain, dysuria or hematuria Musc: Denies: neck pain, back pain or extremity swelling Skin/Breast: Denies: rash or new lesions Neuro: Denies: headache(s), numbness in extremities or weakness in extremities PFSH ED PFSH: Medical History Anxiety and depression Benign essential HTN Degenerative joint disease of spine Dyslipidemia GERD (gastroesophageal reflux disease) Osteoarthritis Thrombocytosis Type 2 diabetes mellitus Surgical History H/O carpal tunnel repair H/O section H/O dilation and curettage (2017) H/O tubal ligation History of appendectomy S/P lumbar and lumbosacral fusion by anterior technique (02/2018) Status post colonoscopy (03/2020) Family History Other Cancer Diabetes Hypertension Stroke Social History Smoking and tobacco status: current every day smoker cigarettes Packs smoked per day: 0.5 Years cigarettes smoked: 40 Quit status (tobacco): has tried quititng Number of times tried to quit tobacco: 10 Second hand smoke exposure: Yes Smoking risk assessment/counseling performed?: No Alcohol intake: current Alcohol intake frequency: holidays/special occasions only Alcohol type: hard liquor and other Desire information about alcohol rehabilitation?: No Counseling given: Yes (Medication & alcohol don't mix.) Desire information about substance/drug rehabilitation?: No Counseling given: No Physical Exam Const: COMMON NORMALS: patient oriented x3 and alert GENERAL APPEARANCE: cooperative HENMT: COMMON NORMALS: normocephalic HEAD & SCALP: normocephalic MOUTH: Normal oral and palatal mucosa present THROAT: posterior oropharynx normal and uvula midline Neck/C-Spine: COMMON NORMALS: supple GENERAL: Yes normal visual inspection Resp: COMMON NORMALS: normal respiratory effort, No retractions, No use of accessory muscles and clear to auscultation bilaterally AUSCULTATION: clear to auscultation bilaterally Cardio: COMMON NORMALS: regular rate, regular rhythm, S1 normal heart sound present, S2 normal heart sound present, No gallops present (Cardio), No clicks present (Cardio), No murmurs present (Cardio) and Peripheral pulses 2+ throughout RATE: regular rate RHYTHM: regular rhythm HEART SOUNDS: S1 normal heart sound present and S2 normal heart sound present PERIPHERAL PULSES: Peripheral pulses 2+ throughout GI: COMMON NORMALS: Normal to inspection, nondistended, normoactive bowel sounds present, Soft to palpation, non-tender and no masses PALPATION: Yes Soft to palpation : COMMON NORMALS: Yes no CVA tenderness BLADDER/KIDNEY EXAM: Yes no CVA tenderness Back/Pelvis: COMMON NORMALS: no CVA tenderness Extremity: COMMON NORMALS: normal to inspection NARRATIVE EXTREMITY EXAM: Right shoulder?tenderness to palpation around humeral head. Limited range of motion due to pain. Neurovascular intact distally. Neuro: COMMON NORMALS: patient oriented x3 SENSORIUM/ORIENTATION: Yes alert GAIT: Yes Normal gait present Skin: GENERAL SKIN EXAM: dry skin Course Vital Signs: Vital signs: Vital Signs Temperature 96.2 F L 06/21/22 15:32 Pulse Rate 81 06/21/22 16:22 Respiratory Rate 17 06/21/22 16:22 Blood Pressure 69/39 06/21/22 15:32 Pulse Oximetry 97 06/21/22 16:22 Oxygen Delivery Me thod 06/21/22 15:32 Oxygen Flow Rate 15 06/21/22 15:32 MDM - Extremity (Nontraumatic) Medical Decision Making Patient is a 62-year-old female comes to the ED with right shoulder pain after fall. Vitals are stable.Right shoulder?tenderness to palpation around humeral head. Limited range of motion due to pain. Neurovascular intact distally. X-ray of right shoulder shows a comminuted impacted displaced humeral head neck fracture. Patient was put in a shoulder immobilizer and I placed order with case management for patient referred to Ortho for follow-up. She already has a prescription for Percocet at home and I told her to continue taking that as needed for any pain. Return ED precautions given. Patient understood and agreed with plan. Lab Data Radiology Impressions Shoulder X-Ray 06/21/22 15:27 IMPRESSION: 1. Comminuted impacted displaced humeral head and neck fracture. 2. Rotator cuff calcific tendinitis. 3. 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 Discharge Plan Discharge Patient Disposition: Home Clinical Impression: Fracture of head of humerus Qualifiers: Encounter type: initial encounter Fracture type: closed Laterality: right Qualified Code(s): S42.291A - Other displaced fracture of upper end of right humerus, initial encounter for closed fracture Condition: Stable Prescriptions: No Action gabapentin 400 mg capsule 400 mg PO TID 90 Days Qty: 270 1RF rosuvastatin [Crestor] 20 mg tablet 20 mg PO DAILY 90 Days Qty: 90 2RF fluticasone propionate 50 mcg/actuation spray,suspension 1 spray intranasal BID Qty: 16 0RF Rx Instructions: administer into each nostril guaifenesin [Mucinex] 600 mg tablet extended release 12hr 600 mg PO BID PRN lisinopril 10 mg tablet See Rx Instructions .ROUTE .COMPLEX Qty: 90 0RF Dose Instruction: TAKE ONE TABLET BY MOUTH EVERY DAY AT BEDTIME Rx Instructions: TAKE ONE TABLET BY MOUTH EVERY DAY AT BEDTIME lisinopril 30 mg tablet See Rx Instructions .ROUTE .COMPLEX Qty: 90 0RF Dose Instruction: TAKE ONE TABLET BY MOUTH EVERY DAY Rx Instructions: TAKE ONE TABLET BY MOUTH EVERY DAY oxycodone-acetaminophen [Percocet] 5-325 mg tablet 1 tab PO .bid PRN (Reason: pain) 30 Days Qty: 60 0RF Rx Instructions: Do not fill until 07/19/2022 vitamin B complex [B Complex-Vitamin B12] Tablet 1 tab PO DAILY vitamin B complex Tablet 1 tab PO DAILY cholecalciferol (vitamin D3) 50 mcg (2,000 unit) capsule 50 mcg PO DAILY oxycodone-acetaminophen 5-325 mg tablet 1 tab PO BID PRN (Reason: pain) 30 Days Qty: 60 0RF Rx Instructions: Do not fill until 06/22/2022 trazodone 50 mg tablet 100 mg PO .QHS PRN (Reason: sleep) Qty: 60 2RF diazepam [Valium] 5 mg tablet 7.5 mg PO DAILY PRN (Reason: anxiety) Qty: 45 2RF duloxetine [Cymbalta] 60 mg capsule,delayed release(DR/EC) 120 mg PO DAILY Qty: 60 2RF bupropion HCl [Wellbutrin XL] 150 mg tablet extended release 24 hr 150 mg PO QAM Qty: 30 2RF bupropion HCl [Wellbutrin XL] 300 mg tablet extended release 24 hr 300 mg PO QAM Qty: 30 2RF pantoprazole 40 mg tablet,delayed release (DR/EC) 40 mg PO DAILY Qty: 90 1RF amlodipine 10 mg tablet 10 mg PO DAILY Qty: 90 1RF furosemide 20 mg tablet See Rx Instructions .ROUTE .COMPLEX Qty: 90 0RF Dose Instruction: TAKE ONE TABLET BY MOUTH EVERY DAY Rx Instructions: TAKE ONE TABLET BY MOUTH EVERY DAY atenolol 25 mg tablet See Rx Instructions .ROUTE .COMPLEX Qty: 90 0RF Dose Instruction: TAKE ONE TABLET BY MOUTH EVERY DAY Rx Instructions: TAKE ONE TABLET BY MOUTH EVERY DAY naproxen 500 mg tablet See Rx Instructions .ROUTE .COMPLEX Qty: 60 0RF Dose Instruction: TAKE 1 TABLET BY MOUTH TWICE DAILY Rx Instructions: TAKE 1 TABLET BY MOUTH TWICE DAILY Trulicity 0.75 mg/0.5 mL pen injector See Rx Instructions .ROUTE .COMPLEX Qty: 2 5RF Dose Instruction: INJECT 0.5ML UNDER THE SKIN ONCE WEEKLY Rx Instructions: INJECT 0.5ML UNDER THE SKIN ONCE WEEKLY oxycodone-acetaminophen 5-325 mg tablet 1 tab PO BID PRN (Reason: pain) 30 Days Qty: 60 0RF Discharge Orders: Discharge ED (Routine); Ordered 06/21/22 Ordered By: Misael Suarez Referrals: Cony Suazo DO [Primary Care Provider] - Discharge Diet: Regular Discharge Activity: Increase activity as tolerated Patient Instructions: Proximal Humerus Fracture (ED) Activity Restrictions/Additional Instructions: Follow-up with medical provider as directed. Case management should be contacting you in the next several days to set up an appointment with Ortho for follow-up on fracture. Keep arm in shoulder immobilizer and limit any activity with right arm until cleared by Ortho. Continue taking your previously prescribed pain meds as needed.. Return to the ER or your medical provider if condition worsens. Please read and understand discharge instructions. Thank you for choosing [facility] for your healthcare needs today. Please realize this is an emergency room and that we are providing you with a medical screening exam and this may not be complete and all inclusive of all the testing and or work up that you may need to determine your ailment or severity of your illness. It is very important that you follow up as instructed or that you return to the Emergency Department should you have concerns or if your condition changes or worsens in any way. Stand Alone Forms: Work/School Release Coding Level of Care Code ED Nuclear Medicine Supervisor for [facility] F[employer] Exam Comprehensive Documented by User: Wisam Raygoza DO 06/21/22 16:46 HPI - Extremity Problem General: Chief complaint: Extremity Injury, Upper Stated complaint: fall, right shoulder injury Time Seen by Provider: 06/21/22 15:18 PFSH ED PFSH: Medical History Anxiety and depression Benign essential HTN Degenerative joint disease of spine Dyslipidemia GERD (gastroesophageal reflux disease) Osteoarthritis Thrombocytosis Type 2 diabetes mellitus Surgical History H/O carpal tunnel repair H/O section H/O dilation and curettage (2017) H/O tubal ligation History of appendectomy S/P lumbar and lumbosacral fusion by anterior technique (02/2018) Status post colonoscopy (03/2020) Family History Other Cancer Diabetes Hypertension Stroke Social History Smoking and tobacco status: current every day smoker cigarettes Packs smoked per day: 0.5 Years cigarettes smoked: 40 Quit status (tobacco): has tried quititng Number of times tried to quit tobacco: 10 Second hand smoke exposure: Yes Smoking risk assessment/counseling performed?: No Alcohol intake: current Alcohol intake frequency: holidays/special occasions only Alcohol type: hard liquor and other Desire information about alcohol rehabilitation?: No Counseling given: Yes (Medication & alcohol don't mix.) Desire information about substance/drug rehabilitation?: No Counseling given: No Course Vital Signs: Vital signs: Vital Signs Temperature 96.2 F L 06/21/22 15:32 Pulse Rate 81 06/21/22 16:22 Respiratory Rate 17 06/21/22 16:22 Blood Pressure 69/39 06/21/22 15:32 Pulse Oximetry 97 06/21/22 16:22 Oxygen Delivery Me thod 06/21/22 15:32 Oxygen Flow Rate 15 06/21/22 15:32 MDM - Extremity (Nontraumatic) Medical Decision Making Patient is a 62-year-old female comes to the ED with right shoulder pain after fall. Vitals are stable.Right shoulder?tenderness to palpation around humeral head. Limited range of motion due to pain. Neurovascular intact distally. X-ray of right shoulder shows a comminuted impacted displaced humeral head neck fracture. Patient was put in a shoulder immobilizer and I placed order with case management for patient referred to Ortho for follow-up. She already has a prescription for Percocet at home and I told her to continue taking that as needed for any pain. Return ED precautions given. Patient understood and agreed with plan. Chart reviewed and patient discussed with midlevel. Agree with assessment and plan. Lab Data Radiology Impressions Shoulder X-Ray 06/21/22 15:27 IMPRESSION: 1. Comminuted impacted displaced humeral head and neck fracture. 2. Rotator cuff calcific tendinitis. 3. 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 Discharge Plan Discharge Patient Disposition: Home Clinical Impression: Fracture of head of humerus Qualifiers: Encounter type: initial encounter Fracture type: closed Laterality: right Qualified Code(s): S42.291A - Other displaced fracture of upper end of right humerus, initial encounter for closed fracture Condition: Stable Prescriptions: No Action gabapentin 400 mg capsule 400 mg PO TID 90 Days Qty: 270 1RF rosuvastatin [Crestor] 20 mg tablet 20 mg PO DAILY 90 Days Qty: 90 2RF fluticasone propionate 50 mcg/actuation spray,suspension 1 spray intranasal BID Qty: 16 0RF Rx Instructions: administer into each nostril guaifenesin [Mucinex] 600 mg tablet extended release 12hr 600 mg PO BID PRN lisinopril 10 mg tablet See Rx Instructions .ROUTE .COMPLEX Qty: 90 0RF Dose Instruction: TAKE ONE TABLET BY MOUTH EVERY DAY AT BEDTIME Rx Instructions: TAKE ONE TABLET BY MOUTH EVERY DAY AT BEDTIME lisinopril 30 mg tablet See Rx Instructions .ROUTE .COMPLEX Qty: 90 0RF Dose Instruction: TAKE ONE TABLET BY MOUTH EVERY DAY Rx Instructions: TAKE ONE TABLET BY MOUTH EVERY DAY oxycodone-acetaminophen [Percocet] 5-325 mg tablet 1 tab PO .bid PRN (Reason: pain) 30 Days Qty: 60 0RF Rx Instructions: Do not fill until 07/19/2022 vitamin B complex [B Complex-Vitamin B12] Tablet 1 tab PO DAILY vitamin B complex Tablet 1 tab PO DAILY cholecalciferol (vitamin D3) 50 mcg (2,000 unit) capsule 50 mcg PO DAILY oxycodone-acetaminophen 5-325 mg tablet 1 tab PO BID PRN (Reason: pain) 30 Days Qty: 60 0RF Rx Instructions: Do not fill until 06/22/2022 trazodone 50 mg tablet 100 mg PO .QHS PRN (Reason: sleep) Qty: 60 2RF diazepam [Valium] 5 mg tablet 7.5 mg PO DAILY PRN (Reason: anxiety) Qty: 45 2RF duloxetine [Cymbalta] 60 mg capsule,delayed release(DR/EC) 120 mg PO DAILY Qty: 60 2RF bupropion HCl [Wellbutrin XL] 150 mg tablet extended release 24 hr 150 mg PO QAM Qty: 30 2RF bupropion HCl [Wellbutrin XL] 300 mg tablet extended release 24 hr 300 mg PO QAM Qty: 30 2RF pantoprazole 40 mg tablet,delayed release (DR/EC) 40 mg PO DAILY Qty: 90 1RF amlodipine 10 mg tablet 10 mg PO DAILY Qty: 90 1RF furosemide 20 mg tablet See Rx Instructions .ROUTE .COMPLEX Qty: 90 0RF Dose Instruction: TAKE ONE TABLET BY MOUTH EVERY DAY Rx Instructions: TAKE ONE TABLET BY MOUTH EVERY DAY atenolol 25 mg tablet See Rx Instructions .ROUTE .COMPLEX Qty: 90 0RF Dose Instruction: TAKE ONE TABLET BY MOUTH EVERY DAY Rx Instructions: TAKE ONE TABLET BY MOUTH EVERY DAY naproxen 500 mg tablet See Rx Instructions .ROUTE .COMPLEX Qty: 60 0RF Dose Instruction: TAKE 1 TABLET BY MOUTH TWICE DAILY Rx Instructions: TAKE 1 TABLET BY MOUTH TWICE DAILY Trulicity 0.75 mg/0.5 mL pen injector See Rx Instructions .ROUTE .COMPLEX Qty: 2 5RF Dose Instruction: INJECT 0.5ML UNDER THE SKIN ONCE WEEKLY Rx Instructions: INJECT 0.5ML UNDER THE SKIN ONCE WEEKLY oxycodone-acetaminophen 5-325 mg tablet 1 tab PO BID PRN (Reason: pain) 30 Days Qty: 60 0RF Discharge Orders: Discharge ED (Routine); Ordered 06/21/22 Ordered By: Misael Suarez Referrals: Cony Suazo DO [Primary Care Provider] - Discharge Diet: Regular Discharge Activity: Increase activity as tolerated Patient Instructions: Proximal Humerus Fracture (ED) Activity Restrictions/Additional Instructions: Follow-up with medical provider as directed. Case management should be contacting you in the next several days to set up an appointment with Ortho for follow-up on fracture. Keep arm in shoulder immobilizer and limit any activity with right arm until cleared by Ortho. Continue taking your previously prescribed pain meds as needed.. Return to the ER or your medical provider if condition worsens. Please read and understand discharge instructions. Thank you for choosing [facility] for your healthcare needs today. Please realize this is an emergency room and that we are providing you with a medical screening exam and this may not be complete and all inclusive of all the testing and or work up that you may need to determine your ailment or severity of your illness. It is very important that you follow up as instructed or that you return to the Emergency Department should you have concerns or if your condition changes or worsens in any way. Stand Alone Forms: Work/School Release Coding Level of Care Code ED Nuclear Medicine Supervisor for Katelynn Fwwenceslao Exam Comprehensive
[2022-06-21 15:32] VITALS: BP 69/39; PULSE 90; RESP 22; TEMP 35.7; O2SAT 97
[2022-06-21 16:22] VITALS: PULSE 81; PULSE 91; RESP 17; RESP 18; O2SAT 97
--- NOTE | 2022-06-23 10:14 | DCPLANNER ---
Addendum entered by Debo Piña 06/26/22 16:50: Patient had a follow up appointment scheduled with ortho - patient did attend appointment. Original Note: market research senior project manager had message to schedule a follow up appointment for patient with ortho. market research senior project manager sent patients information to the front office staff at ortho. Patients information will be printed and reviewed. Clinic will call patient with appointment information.
== END 2022-06-21 16:23 | disposition home or self-care (01) ==
PROVIDERS: Emergency Provider Physician Assistant; PCP Family Medicine
DX: S42.291A Other displaced fracture of upper end of right humerus, initial encounter for closed fracture (principal); Z79.85 Long-term (current) use of injectable non-insulin antidiabetic drugs; I10 Essential (primary) hypertension; E78.5 Hyperlipidemia, unspecified; E11.9 Type 2 diabetes mellitus without complications; F17.210 Nicotine dependence, cigarettes, uncomplicated; W01.198A Fall on same level from slipping, tripping and stumbling with subsequent striking against other object, initial encounter
CPT/HCPCS: 73030; 99283

== ENCOUNTER → 2022-06-25 16:05 | Outpatient (BNVA) | payer OTHER, SELFPAY | PROVIDERS: PCP Family Medicine; Visit Provider Orthopaedic Surgery | DX: S42.291A Other displaced fracture of upper end of right humerus, initial encounter for closed fracture (principal); W19.XXXA Unspecified fall, initial encounter | CPT/HCPCS: 73030 ==

== ENCOUNTER 2022-06-26 11:13 | Outpatient (CLI) | payer OTHER, SELFPAY ==
--- NOTE | 2022-06-26 11:00 | CT_ITS ---
WS: [id number] NONCONTRAST CT RIGHT SHOULDER TECHNIQUE: Noncontrast CT RIGHT shoulder with coronal and sagittal reformatted images. CLINICAL INFORMATION: fracture COMPARISON: None. DLP: 460.[address] scans at [facility] use at least one of these dose optimization techniques: automated e xposure control; mA and/or kV adjustment per patient size (includes targeted exams where dose is matc hed to clinical indication); or iterative reconstruction. FINDINGS: Again seen is the comminuted fracture of the humeral head and neck. Numerous comminuted fra cture fragments with concave depression. Avulsion of the greater tuberosity. Fracture extends through the surgical neck of the humerus with extension into the greater tuberosity. Visualized mid and dist al humeral shaft normal in appearance. No glenoid fractures. Normal coracoid. Calcific tendinosis. Moderate joint effusion with inferior subluxation of the humeral head relative to the glenoid. This i s similar in appearance to the prior radiograph. AC joint appears intact. Soft tissue edema about the RIGHT shoulder. RIGHT clavicle appears normal. Scapula appears intact. No rmal glenoid. Postoperative changes lower cervical spine. Visualized RIGHT ribs are normal in appeara nce. RIGHT lung is well aerated. Indeterminate hazy opacity in the RIGHT middle lobe measuring 5 mm. Recommend further evaluation of the lungs with chest CT. CT/CT shoulder RT wo con* [id number] IMPRESSION: Exam obtained for preoperative surgical planning. 1. Comminuted humeral head and neck fracture described above with moderate harshad nt effusion. Stable inferior subluxation of the humeral head relative to the gl enoid due to joint effusion. 2. Scapula and AC joint are intact. 3. Hazy opacity in the RIGHT middle lobe measuring 5 mm. Recommend further yasmani luation of the lungs with chest CT.
== END 2022-06-26 11:14 | disposition home or self-care (01) ==
PROVIDERS: PCP Family Medicine; Visit Provider Orthopaedic Surgery
DX: S42.293A Other displaced fracture of upper end of unspecified humerus, initial encounter for closed fracture (principal); X58.XXXA Exposure to other specified factors, initial encounter
CPT/HCPCS: 73200

== ENCOUNTER 2022-07-03 11:14 | Day surgery (SDC) | payer OTHER, SELFPAY ==
[2022-07-02 10:09] VITALS: BMI 40.2
[2022-07-03] VITALS (8 sets, daily range): BP systolic 134–166; BP diastolic 67–103; PULSE 100–110; RESP 14–20; TEMP 36.1–37.2; O2SAT 91–100
[2022-07-03] MEDS: sodium chloride 0.9% 1,000 ML 30 ML IV (12:33)
--- NOTE | 2022-07-03 13:07 | P.ANESASSM_ITS ---
Pre-Anesthetic Assessment Height/Weight: Height 1.57 m Weight 99.79 kg Temp Pulse Resp BP Pulse Ox O2 Del Method 97 F L 109 H 20 H 146/101 95 07/03/22 11:33 07/03/22 11:33 07/03/22 11:33 07/03/22 11:33 07/03/22 11:33 07/03/22 11:51 Preop Diagnosis: Fracture right proximal humerus Operation Date: 07/03/22 12:40 Proposed Procedures p ORIF right proximal humerus fracture 75795,S42.201A(Right) - Ayad Reese MD Familial anesthetic complications: none Was Beta Lee taken within 24 hours: Yes Was Clonidine taken within 24 hours: N/A Last intake: Intake Last Liquid Date 07/03/22 Last Liquid Time 06:00 Last Solid Date 07/02/22 Last Solid Time 23:55 Social Tobacco and No alcohol Exam alert, oriented x 3 and regular rate & rhythm Airway Submandibular: within normal limits Cervical ROM: within normal limits Mallampati: Class II Dentition: chipped Pulmonary Chronic Obstructive Pulmonary Disease CV/HEM Hypertension GI Gastroesophageal Reflux Disease Metabolic Hyperlipidemia [facility] [place] Lower Back Pain and Osteoarthritis/DJD Neuropsych Anxiety and Depression Anesthetic Plan ASA status: 3 Anesthesia: General and Regional (specify below) (Interscalene nerve blk) Medications/Allergies Home Medications Medication Instructions Recorded Confirmed Last Taken Type gabapentin 400 mg capsule 400 mg PO TID 90 days #270 caps 10/25/21 07/02/22 07/03/22 Rx amlodipine 10 mg tablet 10 mg PO DAILY #90 tabs 04/08/22 07/02/22 07/03/22 Rx bupropion HCl 150 mg 24 hr tablet, 150 mg PO QAM #30 tabs 04/08/22 07/02/22 07/03/22 Rx extended release (Wellbutrin XL) bupropion HCl 300 mg 24 hr tablet, 300 mg PO QAM #30 tabs 04/08/22 07/02/22 07/03/22 Rx extended release (Wellbutrin XL) diazepam 5 mg tablet (Valium) 7.5 mg PO DAILY PRN anxiety #45 04/08/22 07/02/22 07/03/22 Rx tabs duloxetine 60 mg capsule,delayed 120 mg PO DAILY #60 caps 04/08/22 07/02/22 07/03/22 Rx release (Cymbalta) pantoprazole 40 mg tablet,delayed 40 mg PO DAILY #90 tabs 04/08/22 07/02/22 07/02/22 Rx release trazodone 50 mg tablet 100 mg PO .QHS PRN sleep #60 tabs 04/08/22 07/02/22 Unknown Rx cholecalciferol (vitamin D3) 50 50 mcg PO DAILY 05/21/22 07/02/22 07/02/22 History mcg (2,000 unit) capsule guaifenesin 600 mg tablet, 600 mg PO BID PRN Congestion 05/21/22 07/02/22 Unknown History extended release 12 hr (Mucinex) vitamin B complex (B 1 tab PO DAILY 05/21/22 07/02/22 07/03/22 History Complex-Vitamin B12 tablet) rosuvastatin 20 mg tablet (Crestor) 20 mg PO DAILY 90 days #90 tabs 05/23/22 07/02/22 07/02/22 Rx oxycodone 5 mg tablet 5 mg PO Q4H PRN pain 7 days #30 06/25/22 07/02/22 07/03/22 Rx tabs atenolol 25 mg tablet 25 mg PO DAILY 07/02/22 07/02/22 07/03/22 History dulaglutide 0.75 mg/0.5 mL 0.75 mg SUBCUT .WEEKLY 07/02/22 07/02/22 06/27/22 History subcutaneous pen injector (Trulicity) fluticasone propionate 50 1 spray intranasal BID PRN 07/02/22 07/02/22 Unknown History mcg/actuation nasal Congestion spray,suspension furosemide 20 mg tablet 20 mg PO DAILY 07/02/22 07/02/22 07/03/22 History lisinopril 10 mg tablet 10 mg PO .QPM 07/02/22 07/02/22 07/02/22 History lisinopril 30 mg tablet 30 mg PO QAM 07/02/22 07/02/22 07/02/22 History naproxen 500 mg tablet 500 mg PO BID 07/02/22 07/02/22 07/01/22 History oxycodone-acetaminophen 5 mg-325 1 tab PO BID PRN pain 07/02/22 07/02/22 07/03/22 History mg tablet (Percocet) Allergies Allergy/AdvReac Type Severity Reaction Status Date / Time No Known Allergies Allergy Verified 07/03/22 11:40 Current Medications Generic Name Dose Route Start Last Admin Trade Name Jero PRN Reason Stop Dose Admin Sodium Chloride 1,000 mls @ 30 mls/hr 07/03/22 11:45 07/03/22 12:33 Sodium Chloride 0.9% IV 07/04/22 11:44 30 mls/hr .Q24H GUIDO Administration PFSH Anesthesia Medical History Anxiety and depression Benign essential HTN Degenerative joint disease of spine Dyslipidemia GERD (gastroesophageal reflux disease) Osteoarthritis Thrombocytosis Type 2 diabetes mellitus Surgical History H/O carpal tunnel repair H/O section H/O dilation and curettage (2017) H/O tubal ligation History of appendectomy S/P lumbar and lumbosacral fusion by anterior technique (02/2018) Status post colonoscopy (03/2020) Family History Other Cancer Diabetes Hypertension Stroke Social History Smoking and tobacco status: current every day smoker cigarettes Packs smoked per day: 0.5 Years cigarettes smoked: 40 Quit status (tobacco): has tried quititng Number of times tried to quit tobacco: 10 Second hand smoke exposure: Yes Smoking risk assessment/counseling performed?: No Alcohol intake: current Alcohol intake frequency: holidays/special occasions only Alcohol type: hard liquor and other Desire information about alcohol rehabilitation?: No Counseling given: Yes (Medication & alcohol don't mix.) Desire information about substance/drug rehabilitation?: No Counseling given: No Data Anesthesia Cardiac Studies: No Data to Display
--- NOTE | 2022-07-03 13:13 | W.PM.OPSUD ---
Surgery/Procedure H&P Update DATE OF PROCEDURE: July 03, 2022 DATE H&P PERFORMED: 07/01/22 H&P UPDATE INFORMATION: I have reviewed H&P completed within last 30 days PREOP DIAGNOSIS: Fracture right proximal humerus PLANNED PROCEDURE: Operation Date: 07/03/22 12:40 Proposed Procedures p ORIF right proximal humerus fracture [id number],S42.201A(Right) - Ayad Reese MD
[2022-07-03] MEDS: ceFAZolin 2,000 MG in sodium chloride 0.9% (plus) 50 ML 100 MG IV (13:23)
--- NOTE | 2022-07-03 15:24 | XR_ITS ---
WS: [id number] Right shoulder, C-arm fluoroscopy, 07/03/2022 Clinical Data: OR PICS Comparison: Right shoulder, 06/25/2022 Findings: There is a lateral plate applied to the right humeral head and proximal right humerus shaft with mult iple screws reducing the comminuted fracture of the right humeral head and shaft. XR/XR shoulder RT 1V [id number] Impression: Internal fixation of right humeral head and shaft fracture
--- NOTE | 2022-07-03 15:30 | P.OP_ITS ---
Operative Report Date of procedure: July 03, 2022 Pre-op diagnosis: Preop Diagnosis Fracture right proximal humerus Post-op diagnosis: same Procedure done: Open reduction internal fixation right proximal humerus Implants: [place] AXOS right proximal humeral 4-hole plate, with 7 locking screw this` (5 proximal, 2 distal) and 2 nonlocking screws (both distal) Pathology: none sent Surgeon: Ayad Reese Anesthesia: General and Nerve Block (Interscalene) Estimated blood loss (mL): 100 Findings: The patient had a comminuted fracture of the right proximal humerus consisting of a surgical neck fracture with valgus malalignment of the head, a displaced greater tuberosity fracture and a nondisplaced lesser tuberosity Condition: stable Procedure: The patient was taken to the operating room and given a interscalene block. She was given 2 g of Ancef she was positioned in the beachchair position with her right shoulder exposed. A timeout was performed. Anterior incision was made from just proximal to the coracoid extending distally and laterally. Dissection was carried down through the subcutaneous fat identifying the cephalic vein which was retracted medially with the pectoralis major. The fracture was identified. The fibrous tissue was removed laterally allowing access to the plate to the lateral femur. The fracture was brought out to length and the plate provisionally fixed laterally through the single oblong hole. Some persistent superior displacement of the greater tuberosity was noted. A suture was passed around the greater tuberosity and used to pull it beneath the plates. 2 ultra tape sutures were then passed through the proximal holes in the plate. 1 suture was passed around the superior subscapularis anterior rotator cuff. A second suture was passed through the posterior rotator cuff and external rotators. The sutures were secured drawing the tuberosities into position with the greater tuberosity falling underneath the plate. A total of 5 locking screws were placed through the proximal plate. 2 additional locking 1 nonlocking 1 nonlocking most distal screw were placed through the distal plate. Intraoperative imaging showed that expected position of the hardware and the humerus and satisfactory position. Wounds were irrigated with saline. The upper pectoral interval was closed with interrupted 0 Vicryl. The subcutaneous tissues were closed with 2-0 STRATAFIX. The skin was closed with a running 4-0 STRATAFIX. The skin was closed with Dermabond skin glue. OpSite dressings were applied. The patient was placed in a sling, extubated, and taken recovery in stable condition.
[2022-07-03] MEDS: oxyCODONE-APAP 5-325 mg Tablet 1 TAB PO (16:11)
--- NOTE | 2022-07-03 16:16 | ANES.PROC ---
Anesthesia Procedures Procedure/Date: 07/03/22 Nerve Block ^: Nerve Block 1: Main Anesthesia: general anesthesia Time Out Performed: Yes Consent: from patient, risks and benefits reviewed and patient agrees to proceed Nerve block location: interscalene (right) Anesthesia monitors applied: pulse oximetry, EKG, BP cuff and oxygen Nerve block position: supine Anesthetic Used: ropivicaine 0.5% Amount of anesthesia used (mL): 30 Ultrasound used to: recognize landmarks and visualize and ID brachial plexus Nerve Stimulator Used?: No Interscalene/Femoral BLK: 2 stimuplex 22 g needle used for position and inplane approach Injection: neg aspiration of heme Patient Tolerated Procedure: well Complications: none
--- NOTE | 2022-07-03 16:17 | ANE.PACU2 ---
Inpatient post-anesthesia follow up: Airway intact: Yes Vital signs: Temperature 98 F Pulse Rate 100 Respiratory Rate 16 Blood Pressure 166/94 Pulse Oximetry 95 Oxygen Delivery Me thod Room Air Oxygen Flow Rate 6 Fraction of Inspir ed Oxygen Hydration adequate: Yes Nausea and vomiting: No Pain level: 1 Mental status: Baseline
== END 2022-07-03 16:45 | disposition home or self-care (01) ==
PROVIDERS: PCP Family Medicine; Visit Provider Orthopaedic Surgery
PROC: (CPT 23615; principal; 2022-07-03 12:30)
DX: S42.201A Unspecified fracture of upper end of right humerus, initial encounter for closed fracture (principal); X58.XXXA Exposure to other specified factors, initial encounter; I10 Essential (primary) hypertension; E78.5 Hyperlipidemia, unspecified; K21.9 Gastro-esophageal reflux disease without esophagitis; E11.9 Type 2 diabetes mellitus without complications; F17.210 Nicotine dependence, cigarettes, uncomplicated
CPT/HCPCS: 23615; 73020; 76000; C1713; J0690; J1100; J1580; J2250; J2405; J2704; J2795; J3010; J3490; J7030

== ENCOUNTER 2022-07-04 15:43 | Outpatient (RCR) | payer OTHER, SELFPAY | END 2022-07-15 23:59 | disposition home or self-care (01) | LOC: SPT 15:43 | PROVIDERS: PCP Family Medicine; Visit Provider Orthopaedic Surgery | DX: S42.211D Unspecified displaced fracture of surgical neck of right humerus, subsequent encounter for fracture with routine healing (principal); X58.XXXD Exposure to other specified factors, subsequent encounter | CPT/HCPCS: 97110; 97161 ==

== ENCOUNTER 2022-07-16 06:00 | Outpatient (RCR) | payer OTHER, SELFPAY | END 2022-08-15 23:59 | disposition home or self-care (01) | LOC: SPT 06:00 | PROVIDERS: PCP Family Medicine; Visit Provider Orthopaedic Surgery | DX: S42.211D Unspecified displaced fracture of surgical neck of right humerus, subsequent encounter for fracture with routine healing (principal); X58.XXXD Exposure to other specified factors, subsequent encounter | CPT/HCPCS: 97110 ==

== ENCOUNTER → 2022-08-05 13:47 | Outpatient (BNVA) | payer OTHER, SELFPAY | PROVIDERS: PCP Family Medicine; Visit Provider Orthopaedic Surgery | DX: S42.201D Unspecified fracture of upper end of right humerus, subsequent encounter for fracture with routine healing (principal); X58.XXXD Exposure to other specified factors, subsequent encounter; R91.8 Other nonspecific abnormal finding of lung field | CPT/HCPCS: 73030 ==

== ENCOUNTER 2022-08-14 06:29 | Outpatient (CLI) | payer OTHER, SELFPAY ==
--- NOTE | 2022-08-14 06:30 | CT_ITS ---
WS: [id number] CT chest w con* [id number] HISTORY: Follow-up RIGHT middle lobe hazy opacification. TECHNIQUE: Axial imaging performed through the thorax. Coronal and sagittal reformats are submitted. All CT scans at [facility] use at least one of these dose optimization techniques: automated exposure control; mA and/or kV adjustment per patient size (includes targeted exams where dose is mat ched to clinical indication); or iterative reconstruction. CONTRAST: Omnipaque 350; 100 mL IV. DLP: 488.05 mGy.cm COMPARISON: CT shoulder 06/26/2022 Lungs and central airway: Mild breathing motion artifact. 4 mm ill-defined nodule along the minor fis sure. This is a typical location for benign intrapulmonary lymph node. No additional abnormality or h azy opacification. Pleura: Normal. No pleural effusion. Heart and pericardium: Normal size heart with no pericardial effusion. Mediastinum and connor: No mediastinum or hilar adenopathy. Vessels: Normal size aortic and pulmonary artery. No coronary artery calcifications. Chest wall and lower neck: No soft tissue masses. Upper abdomen: Visualized gallbladder and liver are negative. No adrenal mass. Osseous structures: Mild thoracic spondylosis. Prior ORIF RIGHT humerus. CT/CT chest w con* [id number] IMPRESSION: 1. 4 mm noncalcified nodule along the RIGHT minor fissure. These are typically benign intrapulmonary lymph nodes. Consider six-month noncontrast chest CT fol low-up to confirm stability. 2. No additional mass or nodule. 3. No adenopathy.
[2022-08-14] MEDS: iohexol 350 mg/mL 500 mL Btl (per mL) IV (07:51)
== END 2022-08-14 06:30 | disposition home or self-care (01) ==
LOC: RAD 06:32
PROVIDERS: PCP Family Medicine; Visit Provider Orthopaedic Surgery
DX: R91.8 Other nonspecific abnormal finding of lung field (principal)
CPT/HCPCS: 71260; Q9967

== ENCOUNTER 2022-08-16 06:00 | Outpatient (RCR) | payer OTHER, SELFPAY | END 2022-09-14 23:59 | disposition home or self-care (01) | LOC: SPT 06:00 | PROVIDERS: PCP Family Medicine; Visit Provider Orthopaedic Surgery | DX: Z47.89 Encounter for other orthopedic aftercare (principal) | CPT/HCPCS: 97110 ==

== ENCOUNTER → 2022-09-09 15:30 | Outpatient (BNVA) | payer OTHER, SELFPAY | PROVIDERS: PCP Family Medicine; Visit Provider Orthopaedic Surgery | DX: S42.201D Unspecified fracture of upper end of right humerus, subsequent encounter for fracture with routine healing (principal); X58.XXXD Exposure to other specified factors, subsequent encounter | CPT/HCPCS: 73030 ==

== ENCOUNTER 2022-09-15 06:00 | Outpatient (RCR) | payer OTHER, SELFPAY | END 2022-10-15 23:59 | disposition home or self-care (01) | LOC: SPT 06:00 | PROVIDERS: PCP Family Medicine; Visit Provider Orthopaedic Surgery | DX: S42.211D Unspecified displaced fracture of surgical neck of right humerus, subsequent encounter for fracture with routine healing (principal); X58.XXXD Exposure to other specified factors, subsequent encounter | CPT/HCPCS: 97110 ==

== ENCOUNTER → 2022-11-20 09:32 | Outpatient (BNVA) | payer OTHER, SELFPAY | PROVIDERS: PCP Family Medicine; Visit Provider Family Medicine | DX: E11.9 Type 2 diabetes mellitus without complications (principal) | CPT/HCPCS: 80053; 83036 ==

== ENCOUNTER → 2022-11-27 13:19 | Outpatient (BNVA) | payer OTHER, SELFPAY | PROVIDERS: PCP Family Medicine; Visit Provider Nurse Practitioner Family | DX: S42.201A Unspecified fracture of upper end of right humerus, initial encounter for closed fracture (principal); X58.XXXA Exposure to other specified factors, initial encounter; M17.0 Bilateral primary osteoarthritis of knee | CPT/HCPCS: 73030 ==

== ENCOUNTER → 2022-12-10 13:47 | Outpatient (BNVA) | payer OTHER, SELFPAY | PROVIDERS: PCP Family Medicine; Visit Provider Nurse Practitioner Family | DX: M17.0 Bilateral primary osteoarthritis of knee; E66.9 Obesity, unspecified; Z68.41 Body mass index [BMI] 40.0-44.9, adult | CPT/HCPCS: 73560; 73565 ==

== ENCOUNTER 2023-02-20 14:31 | Outpatient (CLI) | payer OTHER, SELFPAY ==
--- NOTE | 2023-02-20 15:00 | CT_ITS ---
WS: [id number] EXAMINATION: CT chest wo mary [id number] ORDER DATE: 02/20/2023 2:34 PM COMPARISON: 08/14/2022 HISTORY: abnormal chest CT CONTRAST: None TOTAL EXAM DLP: 507.[address] scans at [facility] use at least one of these dose optimization techniques: automated e xposure control; mA and/or kV adjustment per patient size (includes targeted exams where dose is matc hed to clinical indication); or iterative reconstruction. TECHNIQUE: Multiple axial images of the chest were obtained with 2-D imaging without the administration of contr ast. Evaluation of the mediastinum and connor for adenopathy and other pathology is significantly limited by the lack of intravascular contrast. FINDINGS: Lungs and Central Bronchi: 4 mm ill-defined nodule along the minor fissure. This is a typical location for benign intrapulmonary lymph node. No additional abnormality or hazy opacification. Pleura: Normal. No pleural effusion. Heart and pericardium: Normal size heart with no pericardial effusion. Mediastinum and connor: No mediastinum or hilar adenopathy. Vessels: Normal size aortic and pulmonary artery. No coronary artery calcifications. Chest wall and lower neck: No soft tissue masses. Upper abdomen: Small uncomplicated hiatal hernia. Visualized gallbladder and liver are negative. No a drenal mass. Bones: Prominent osteoarthritic and degenerative disc change throughout the dorsal spine. IMPRESSION: NO CHANGE IN THE RIGHT LUNG NODULE CONTINUED FLEISCHNER CRITERIA FOLLOW-UP SUGGESTED.
== END 2023-02-20 14:32 | disposition home or self-care (01) ==
LOC: RAD 14:32
PROVIDERS: PCP Family Medicine; Visit Provider Family Medicine
DX: R93.89 Abnormal findings on diagnostic imaging of other specified body structures (principal); R91.8 Other nonspecific abnormal finding of lung field; K44.9 Diaphragmatic hernia without obstruction or gangrene
CPT/HCPCS: 71250